=== PATIENT | male | born 1940 | race Caucasian/White ===

== ENCOUNTER 2018-02-05 13:43 | Emergency (ER) | payer OTHER, SELFPAY ==
[2018-02-05 13:54] VITALS: BP 124/100; PULSE 80; RESP 18; TEMP 37; O2SAT 97
--- NOTE | 2018-02-05 14:25 | DI.REPORT_ITS ---
SYMPTOMS/DIAGNOSIS: CUT WITH A SAW, DISTAL 2, 3, 4 DIGITS LEFT HAND: The patient reportedly has a soft tissue injury of the index, middle and ring fingers. There are soft tissue defects noted. There are degenerative changes of the IP joints. A small bony fragment seen adjacent to the DIP joint of the index finger could represent degenerative change vs avulsed bony fragment. No other significant bony abnormality seen.
--- NOTE | 2018-02-05 16:06 | ED.GENADUL_ITS ---
Disposition Clinical Impression: Finger laceration involving tendon, Finger laceration Disposition: HOME Condition: Fair Instructions: Finger Laceration (ED) Additional Instructions: Keep fingers elevated. Tylenol and/or ibuprofen as needed for discomfort. Please keep current dressing on for the next 48 hours. After that time you may change the dressing but please keep this covered with sterile dressing. When she removed the initial bandage, please use the foam and metal splint. He may yogi tape her fingers together. Please monitor for signs of infection including redness, warmth, drainage, fever/chills, increased pain or other new/ worsening symptoms. Please seek care urgently if you develop these. Please take antibiotics as prescribed. Please contact orthopedics Thursday morning to schedule follow-up appointment. Dr. Baker is expecting to see you in the office next week. Prescriptions: Cephalexin [Keflex] 500 mg PO QID #28 cap Referrals: Trenton Baker MD [ [facility] STAFF PHYSICIAN] - Medical Decision Making - Radiology Data Radiology results: report reviewed Imaging reviewed by radiologist. They advised that the soft tissue defects are noted. There are degenerative change of the IP joints. Small bony fragments seen adjacent to the DIP joint of the index finger which could represent degenerative changes versus avulsed bony fragment. No other significant bony abnormality seen. - Medical Decision Making Patient presents today with chief complaint of laceration to the left hand. Part arrival patient was working with a table saw and cut the index, middle and ring finger. Patient has diminished sensation on exam. Patient is unable to flex the DIP joint in all of the affected digits, he has minimal flexion in the ring but otherwise unable to flex the DIP at all. Patient is having severe discomfort. Unknown tetanus status. I have asked nursing staff to help determine tetanus status. Given the depth of 1 feel that imaging is appropriate of possible fracture. Prior to patient undergoing imaging, I feel that digital block is appropriate to help with his severe discomfort. Patient I discussed risk/benefits as well as procedural steps involved in block. He voiced understanding and wished to proceed Last tetanus was completed in 2014. Procedure note: Prior to patient going imaging, a digital block was performed on the second, third and fourth digits. Was performed using standard sterile technique. Prior to anesthetizing the area range of motion sensation was assessed. Please see note above. 2% lidocaine plain was used to anesthetize the digits. 5 cc was used at both the second and fourth digits. 4 cc was used in the base of the third. Patient tolerated procedure well. Imaging was obtained. Radiologist voiced concern for possible fracture to the index finger. Normal, he also advised that this may be also arthritic changes and not an acute fracture. Procedure note: Using standard sterile technique, the wounds are copiously irrigated. I initiated my care with the index finger. On each finger, a tourniquet was used to be able to visualize the wounds. No foreign body or debris was noted any of the wounds. They were all cleansed with sterile saline and chlorhexidine. On examination of the index finger, the flexor tendon of the DIP joint was noted to be completely severed. Attention was then turned to closure. #8 stitches were used to realign multiple jagged flaps. Attention was then turned to the third finger. The flexor tendon of the DIP joints is involved but does not appear to be completely severed. Along the radial side, the tendon remains intact. Appears to be a partial thickness laceration to the tendon. Wound edges were then realigned and #7 simple interrupted sutures were placed. This digit does appear to be lacking some tissue, I feel that some of this may remain on the saw. The fourth digit was evaluated. Flap was able to be realigned. No foreign body or debris was noted. This is into the fatty portion of the digit. No tendon or bony involvement noted. #7 simple interrupted sutures were placed. For all the suturing, 5-0 nylon was used. Consulted with Dr. Baker regarding findings while cleansing the wound and tendon involvement. He advised that there is no acute changes. Advised. We also discussed that the patient does not have sensation distal to the wounds. His request to see the patient in clinic next week. Patient tolerated procedures well. Sterile bulky dressings were placed by nursing staff. Encourage elevation of his hand. He will keep current dressings on for the next 48 hours. After that time, he will remove the dressing and reapply new sterile dressing. A foam and metal splint was discharged with the patient for the index and middle finger. We discussed the signs and symptoms of infection and when to seek care urgently once again. He will contact orthopedics next week to schedule follow-up with Dr. Baker is advised above. We discussed new/worsening symptoms when to seek care urgently once again. All his questions and concerns were addressed and he is in agreement this plan. Is advised he may wash with running water but should not soak or submerge this will increase his risk of infection. History of Present Illness - General Chief complaint: Laceration Stated complaint: FINGERS LACERATION/BENCH SAW Time Seen by Provider: 02/05/18 14:01 Source: patient, family, RN notes reviewed Mode of arrival: ambulatory Limitations: no limitations - History of Present Illness Initial comments: Patient is a right-hand dominant 78-year-old male presenting today with chief complaint of laceration to the left hand. Prior to arrival, the patient was working with a table saw when he accidentally caught his second, third and fourth digits - Related Data Omeprazole 20 mg PO DAILY 09/19/12 Multivitamin [Multivitamins] 1 each PO DAILY 08/17/13 Naproxen Sodium [Aleve] 2 cap PO DAILY 01/31/15 Aspirin 81 mg PO DAILY tab-cap 06/04/16 Cholecalciferol (Vitamin D3) [Vitamin D3] 200 unit PO BID 09/14/17 Cephalexin [Keflex] 500 mg PO QID #28 cap 02/05/18 Allergies Allergy/AdvReac Type Severity Reaction Status Date / Time citric acid Allergy Mild Unverified 02/05/18 14:32 Course Vital Signs - 24 hr 02/05/18 13:54 Temperature 37.0 C Pulse 80 Respiratory 18 Rate Blood Pressure 124/100 Pulse Oximetry 97
[2018-02-05 16:37] VITALS: BP 124/65; PULSE 86; RESP 16; TEMP 37; O2SAT 97
== END 2018-02-05 16:35 | disposition home or self-care (01) ==
PROVIDERS: Emergency Provider Emergency Medicine; PCP Family Medicine
DX: S66.121A Laceration of flexor muscle, fascia and tendon of left index finger at wrist and hand level, initial encounter (principal); S66.123A Laceration of flexor muscle, fascia and tendon of left middle finger at wrist and hand level, initial encounter; S61.215A Laceration without foreign body of left ring finger without damage to nail, initial encounter; W31.2XXA Contact with powered woodworking and forming machines, initial encounter
CPT/HCPCS: 12041; 99284; 73130; 99283

== ENCOUNTER → 2018-02-09 10:19 | Outpatient (CLI) | payer OTHER, SELFPAY | PROVIDERS: PCP Family Medicine; Visit Provider Orthopaedic Surgery | DX: S66.121A Laceration of flexor muscle, fascia and tendon of left index finger at wrist and hand level, initial encounter (principal); S66.123A Laceration of flexor muscle, fascia and tendon of left middle finger at wrist and hand level, initial encounter; S61.215A Laceration without foreign body of left ring finger without damage to nail, initial encounter; W31.2XXA Contact with powered woodworking and forming machines, initial encounter | CPT/HCPCS: 99213 ==

== ENCOUNTER 2018-02-18 03:12 | Outpatient (CLI) | payer OTHER, SELFPAY ==
[2018-02-18 09:47] LABS: ALT 25 U/L (12-78); AST 19 U/L (15-37); Albumin 3.4 g/dL (3.4-5.0); Alkaline Phosphatase 66 U/L (46-116); Anion Gap 6.6 mmol/L (3-11); BUN 18 mg/dL (7-18); Bilirubin, Total 0.9 mg/dL (0.2-1.0); CO2 26.4 mmol/L (21.0-32.0); CREATININE 1.18 mg/dL (0.70-1.30); Calcium 8.7 mg/dL (8.5-10.1); Chloride 105 mmol/L (98-107); Estimated GFR 59.86 (mL/min/1.73m2); Glucose 94 mg/dL (70-100); Potassium 4.6 mmol/L (3.5-5.1); Sodium 138 mmol/L (136-145); Total Protein 7.1 g/dL (6.4-8.2)
== END 2018-02-18 03:32 ==
PROVIDERS: PCP Family Medicine; Visit Provider Family Medicine
DX: E55.9 Vitamin D deficiency, unspecified (principal); K21.9 Gastro-esophageal reflux disease without esophagitis
CPT/HCPCS: 36415; 80053; 82306; 99213

== ENCOUNTER → 2018-03-04 08:43 | Outpatient (BNVA) | payer OTHER, SELFPAY | PROVIDERS: PCP Family Medicine; Referring Provider Family Medicine; Visit Provider Orthopaedic Surgery | DX: S66.121D Laceration of flexor muscle, fascia and tendon of left index finger at wrist and hand level, subsequent encounter (principal); S66.123D Laceration of flexor muscle, fascia and tendon of left middle finger at wrist and hand level, subsequent encounter; S61.215D Laceration without foreign body of left ring finger without damage to nail, subsequent encounter; W31.2XXD Contact with powered woodworking and forming machines, subsequent encounter | CPT/HCPCS: 99212 ==

== ENCOUNTER 2019-02-23 01:17 | Outpatient (CLI) | payer OTHER, SELFPAY ==
[2019-02-23 08:43] LABS: Glucose 117 mg/dL (70-100); Magnesium 1.7 mg/dL (1.8-2.4)
[2019-02-24 05:48] LABS: Vitamin D 25 Total 29.2 ng/ml (30-100)
== END 2019-02-23 01:37 ==
LOC: LOS 01:17 → LBO 07:32
PROVIDERS: PCP Family Medicine; Visit Provider Family Medicine
DX: E55.9 Vitamin D deficiency, unspecified (principal); E83.42 Hypomagnesemia; R73.03 Prediabetes
CPT/HCPCS: 36415; 82306; 82947; 83735

== ENCOUNTER 2020-05-09 01:56 | Outpatient (CLI) | payer OTHER, SELFPAY ==
[2020-05-12 14:55] LABS: Patient Race White; SARS-CoV-2 RNA Undetected (Undetected); SARS-CoV-2 Specimen Source Nasal
== END 2020-05-09 02:16 ==
PROVIDERS: PCP Family Medicine; Visit Provider Family Medicine
DX: Z20.828 Contact with and (suspected) exposure to other viral communicable diseases (principal)
CPT/HCPCS: U0003

== ENCOUNTER 2020-05-21 11:30 | Emergency (ER) | payer OTHER, SELFPAY ==
[2020-05-21 11:40] VITALS: BP 169/79; PULSE 76; RESP 16; TEMP 36.4; O2SAT 95
--- NOTE | 2020-05-21 11:44 | ED.GENADUL_ITS ---
Discharge Plan Disposition Patient Disposition: HOME Condition: Stable Discharge Details Clinical Impression: Lumbar strain Primary Care Provider: Beverly Martinez ED Provider: Jocelyn Villeda Home Meds and New Rx's Prescriptions: New methocarbamol 500 mg tablet 500 mg PO Q6H PRN (Reason: muscle spasm) Qty: 14 RF: 0 oxycodone 5 mg tablet 5 mg PO Q6H PRN (Reason: pain) Qty: 5 RF: 0 Continued cholecalciferol (vitamin D3) [Vitamin D3] 400 unit tablet 2,000 unit PO DAILY RF: 0 sildenafil [Viagra] 50 mg tablet 50 mg PO DAILY PRN (Reason: sexual activity) Qty: 2 RF: 0 multivitamin 1 EACH tablet 1 ea PO DAILY RF: 0 naproxen sodium [Aleve] 220 MG tablet 2 cap PO DAILY RF: 0 omeprazole 20 MG capsule,delayed release(DR/EC) 20 mg PO DAILY RF: 0 Discharge Instructions Instructions: Low Back Strain (ED) Additional Instructions: Alternate ice and heat to the affected area(s) several times daily for 20 minutes at a time. Alternate tylenol and motrin as needed and directed for pain. Take the methocarbamol and oxycodone as needed and directed for pain not relieved with Tylenol or Motrin. You can also use [id number] Lidoderm patches as needed and directed for pain. Follow-up with your primary care doctor in 1 week. Return to the emergency department with any worsening or new concerning symptoms such as leg weakness or numbness, bowel or bladder incontinence or worsening pain. Discharge Data Discharge Date/Time-TO BE ENTERED AT DEPARTURE: 05/21/20 12:27 Discharge Physician: Jocelyn Villeda Medical Decision Making 80-year-old male with a history of GERD, migraine, osteoarthritis presents for left lower back pain that started after feeling a pop when lifting a piece of wood at home 4 days ago. No cauda equina symptoms. No radiation of pain. He appears uncomfortable with antalgic gait. Otherwise he appears nontoxic. His abdomen is soft and nontender. He has left lower lumbar paraspinal tenderness but no midline spinal tenderness. There is no evidence of trauma. No focal deficits. Neurovascular intact. Suspect lumbar muscle strain. History and presentation not consistent with cauda equina syndrome, vertebral fracture, or GI or cause. Patient has no midline spinal tenderness without report or evidence of trauma and without focal deficits, do not see indication for imaging at this time and he is agreeable. Patient drove himself to the ER will hold on medication here. A Lidoderm patch was placed here. Patient was sent home with methocarbamol and oxycodone. Advised to alternate ice and heat, Tylenol and Motrin. Advised to follow up with the primary care doctor for re-evaluation. Usual and customary return precautions given prior to discharge. Medical Records Medical records reviewed: Yes I reviewed the patient's medical records. HPI General Mode of arrival: ambulatory . Date/Time Provider Initiated Documentation: 05/21/20 11:32 . Limitations to Documentation: no limitations . Information obtained by: patient . HPI Narrative: Patient is a 80-year-old male who presents with left lower back pain after lifting a piece of wood at home 4 days ago. Patient states he was working on a wood shed when he bent over wrong and felt an instant stabbing pain in his left lower back. He states the pain is worse with moving and walking and when moving from sitting to standing positions. He has been taking Advil without relief. He denies any radiation of pain into his buttock or leg. He denies fever, nausea, vomiting, abdominal pain, bowel or bladder incontinence, saddle anesthesia, leg weakness or numbness. Patient took Advil prior to arrival. Patient states he drove himself to the ER. Related Data Home Medications Medication Instructions Recorded Confirmed omeprazole 20 mg PO DAILY 09/19/12 05/21/20 multivitamin 1 ea PO DAILY 08/17/13 05/21/20 naproxen sodium [Aleve] 2 cap PO DAILY 01/31/15 05/21/20 cholecalciferol (vitamin D3) 10 2,000 unit PO DAILY tab-cap 02/17/19 05/21/20 mcg (400 unit) tablet sildenafil 50 mg tablet 50 mg PO DAILY PRN #2 tab 04/11/20 05/21/20 methocarbamol 500 mg PO Q6H PRN #14 tab 05/21/20 oxycodone 5 mg PO Q6H PRN #5 tab 05/21/20 Previous Rx's Medication Instructions Recorded sildenafil 50 mg tablet 50 mg PO DAILY PRN #2 tab 04/11/20 methocarbamol 500 mg PO Q6H PRN #14 tab 05/21/20 oxycodone 5 mg PO Q6H PRN #5 tab 05/21/20 Allergies Allergy/AdvReac Type Severity Reaction Status Date / Time citric acid Allergy Mild Verified 05/21/20 11:46 Review of Systems All systems reviewed & are unremarkable except as noted in HPI and below Constitutional Constitutional: Reports as per HPI, Denies chills and Denies fever(s) Eyes Eyes: Denies blurry vision ENT Ears, Nose, Mouth, and Throat: Denies dizziness, Denies sore throat and Denies throat swelling Cardiovascular Cardiovascular: Denies chest pain and Denies dyspnea Respiratory Respiratory: Denies cough and Denies dyspnea Gastrointestinal Gastrointestinal: Denies abdominal pain, Denies diarrhea and Denies vomiting Genitourinary Genitourinary: Denies hematuria and Denies dysuria Musculoskeletal Musculoskeletal: Reports back pain and Denies numbness Integumentary/Breasts Skin/Breast: Denies lesions and Denies rash Neurologic Neurologic: Denies dizziness, Denies localized weakness and Denies numbness Allergic/Immunologic Allergic/Immunologic: Denies throat swelling [facility] Medical History (Updated 05/21/20 @ 12:14 by Jocelyn Villeda DO) GERD (gastroesophageal reflux disease) Hearing loss History of tobacco use Has not smoked for 35 to 40 years. Injury of hand (02/05/18) Migraine aura without headache (08/12/16) Osteoarthritis POLST (Physician Orders for Life-Sustaining Treatment) Surgical History (Updated 04/11/20 @ 09:24 by Myron Mckeon NP) Status post tonsillectomy Tonsillectomy Family History (Updated 04/12/20 @ 18:47 by Sena Brown) Mother , age 70 Chronic obstructive lung disease Cancer Father , age 61 Colon cancer Sister , age 74 Diabetes Essential hypertension Stroke Brother , age 72 Diabetes Lung cancer Maternal Grandfather Essential hypertension Stroke Paternal Grandfather No problems noted. Maternal Grandmother Diabetes Cancer Paternal Grandmother No problems noted. Brother Diabetes Brother No problems noted. Son No problems noted. Son No problems noted. Son No problems noted. Daughter , age 45 Cancer Social History (Updated 04/12/20 @ 18:46 by Sena Brown) Smoking/Tobacco Use Status: Former Tobacco Use Tobacco: How many years used: 30 Smoking risk assessment performed?: Yes Alcohol Intake: former Drug use: Never Caregiver/Support person: No Household members: none Communication Needs: None Pets and animals: No Do you think of yourself as: straight/heterosexual Current gender identity: male What is your relationship status?: How often do you talk on the phone with friends or family?: three or more times per week How often do you attend confucianist or synagogue services?: 4 or more times per year Do you belong to any clubs or organized social groups?: no Panel score (0-1 are the most socially isolated patients): 2 What type of physical activity do you participate in: other Details: work Duration: > 90 minutes/day Frequency: 5-6 times per week Edith/Latter-Day: Scientology Special edith needs: No Seatbelt use: always Drive intox or ride w/intox bull driver: No Do you feel safe in your relationship?: Yes Victim of physical abuse: No Victim of emotional abuse: No Victim of sexual abuse: No Would you like helpful sources: No Exam Const General: cooperative, healthy appearing and no acute distress HENMT Head: normal to inspection Face and sinus: normal facial exam Eyes General: appearance normal, both eyes and all related structures EOM: EOM intact bilaterally Neck Neck: normal visual inspection and No submandibular swelling Lymphatic: no lymphadenopathy noted Chest Chest: normal inspection of the chest and no tenderness Resp Effort & Inspection: normal respiratory effort and able to speak in complete sentences Auscultation: clear to auscultation bilaterally Cardio Rate: regular rate Rhythm: regular rhythm GI Inspection: normal to inspection Palpation: soft, not firm, not rigid and nontender Auscultation: normal bowel sounds Back/Spine/Pelvis Thoracic/Lumbar Spine: paraspinal tenderness (Left lower lumbar), No thoracic spinal tenderness and No lumbar spinal tenderness Pelvis: no pain with anterior-posterior compression, no buttock ecchymosis, no buttock tenderness and no buttock swelling Sacrum: no ecchymosis, no erythema, no swelling and no tenderness Coccyx: no swelling and no tenderness Skin General skin exam: no rashes or lesions noted Neuro General: patient alert, patient awake, patient oriented x3, moves all extremities and no focal motor deficits Cognition: normal cognition Speech: speech normal Gait: antalgic Motor: muscle tone normal throughout and strength 5/5 throughout Sensory Exam: no sensory deficits noted DTR's: Rt Patellar: 1+, Lt Patellar: 1+, Rt Ankle: 1+ and Lt Ankle: 1+ Plantar Reflexes: Equivocal: bilateral (Negative Babinski bilaterally) Extrem General: normal to inspection, full ROM, capillary refill normal, no calf tenderness bilaterally and no edema Other: Bilateral DP/PT pulses intact. Psych Appearance: grossly normal Mental Status: mental status grossly normal Speech and Movement: speech and movement normal Affect: normal affect
[2020-05-21] MEDS: Lidocaine 5% Patch 1 PATCH TP (12:26)
== END 2020-05-21 12:27 | disposition home or self-care (01) ==
LOC: ER 12:22
PROVIDERS: Emergency Provider Physician Assistant; PCP Family Medicine
DX: S39.012A Strain of muscle, fascia and tendon of lower back, initial encounter (principal); X50.0XXA Overexertion from strenuous movement or load, initial encounter
CPT/HCPCS: 99283

== ENCOUNTER 2020-06-20 08:07 | Outpatient (CLI) | payer OTHER, SELFPAY ==
[2020-06-21 14:42] LABS: COVID-19 RT-PCR UVMMC Result Negative (Negative)
== END 2020-06-20 08:27 ==
PROVIDERS: PCP Family Medicine; Visit Provider Family Medicine
DX: Z20.828 Contact with and (suspected) exposure to other viral communicable diseases (principal)
CPT/HCPCS: U0003

== ENCOUNTER 2020-11-02 13:41 | Emergency (ER) | payer OTHER, SELFPAY ==
[2020-11-02 13:45] VITALS: BP 161/74; PULSE 72; RESP 18; TEMP 36.2; O2SAT 96
--- NOTE | 2020-11-02 14:31 | DI.RAD_ITS ---
Exam(s) XR KNEE LT 3V AP,LAT,NANO EXAM: XR KNEE LT 3V AP,LAT,NANO CLINICAL HISTORY: twisting injury TECHNIQUE: COMPARISON: CR RIGHT KNEE 3 VIEWS from 02/28/2013 FINDINGS: Three views were obtained. There does not appear to be a significant knee joint effusion or hemarthr osis. No fracture is seen. IMPRESSION: RADIATION DOSE DELIVERED: Total DLP
--- NOTE | 2020-11-02 14:55 | ED.GENADUL_ITS ---
Discharge Plan Disposition Patient Disposition: HOME Condition: Good Discharge Details Clinical Impression: Left knee pain Primary Care Provider: Beverly Martinez ED Provider: Kayla Jett Home Meds and New Rx's Prescriptions: New diclofenac sodium 3 % gel 1 applic topical BID 60 Days RF: 0 No Action cholecalciferol (vitamin D3) [Vitamin D3] 400 unit tablet 2,000 unit PO DAILY RF: 0 sildenafil [Viagra] 50 mg tablet 50 mg PO DAILY PRN (Reason: sexual activity) Qty: 2 RF: 0 multivitamin 1 EACH tablet 1 ea PO DAILY RF: 0 naproxen sodium [Aleve] 220 MG tablet 2 cap PO DAILY RF: 0 omeprazole 20 MG capsule,delayed release(DR/EC) 20 mg PO DAILY RF: 0 methocarbamol 500 mg tablet 500 mg PO Q6H PRN (Reason: muscle spasm) Qty: 14 RF: 0 oxycodone 5 mg tablet 5 mg PO Q6H PRN (Reason: pain) Qty: 5 RF: 0 Discharge Instructions Instructions: Knee Pain (ED) Additional Instructions: Take Tylenol 650 every 4-6 hours as needed for pain You may apply Voltaren gel topically as prescribed for pain Use your knee brace and walker or cane Please return with redness, fever, worsening pain Follow up with the orthopedist listed below or your primary care physician for outpatient follow-up Referrals: Sergio Herrera MD [ [facility] STAFF PHYSICIAN] - Discharge Data Discharge Date/Time-TO BE ENTERED AT DEPARTURE: 11/02/20 15:00 Medical Decision Making No clinical evidence of DVT clinically, no tenderness or swelling appreciated, tenderness with palpation to lateral left knee, no evidence of septic joint No overlying erythema, has knee brace which she is wearing and ambulatory with antalgic gait Has walker and cane at home and feels comfortable discharge home Orthopedic referral and Voltaren gel supplied X-ray does not show evidence of acute abnormality per my interpretation and r adiology review Differential Diagnosis Differential Diagnosis: Fracture, strain, contusion, abrasion Medical Records Medical records reviewed: Yes I reviewed the patient's medical records. HPI General Mode of arrival: ambulatory . Date/Time Provider Initiated Documentation: 11/02/20 13:56 . Limitations to Documentation: no limitations . Information obtained by: patient . HPI Narrative: This 80-year-old male presents with left knee pain after twisting 3 days ago. Is been taking ibuprofen with mild relief. He feels that he is getting around safely with a crutch. He denies any calf pain or swelling. He denies any strength or sensation change. Pain is exacerbated with blinking. He has been wearing a brace with mild improvement in his symptoms. He denies any fever or chills. Related Data Home Medications Medication Instructions Recorded Confirmed omeprazole 20 mg PO DAILY 09/19/12 05/21/20 multivitamin 1 ea PO DAILY 08/17/13 05/21/20 naproxen sodium [Aleve] 2 cap PO DAILY 01/31/15 05/21/20 cholecalciferol (vitamin D3) 10 2,000 unit PO DAILY tab-cap 02/17/19 05/21/20 mcg (400 unit) tablet sildenafil 50 mg tablet 50 mg PO DAILY PRN #2 tab 04/11/20 05/21/20 methocarbamol 500 mg PO Q6H PRN #14 tab 05/21/20 oxycodone 5 mg PO Q6H PRN #5 tab 05/21/20 diclofenac sodium 1 applic TOPICAL BID 60 Days g 11/02/20 Previous Rx's Medication Instructions Recorded sildenafil 50 mg tablet 50 mg PO DAILY PRN #2 tab 04/11/20 methocarbamol 500 mg PO Q6H PRN #14 tab 05/21/20 oxycodone 5 mg PO Q6H PRN #5 tab 05/21/20 diclofenac sodium 1 applic TOPICAL BID 60 Days g 11/02/20 Allergies Allergy/AdvReac Type Severity Reaction Status Date / Time citric acid Allergy Mild Verified 11/02/20 13:52 General Stated Complaint: Orthopedic ALBINO: 4 Review of Systems Narrative: Review of systems negative x3 aside from where indicated in HPI [facility] Medical History (Updated 11/02/20 @ 14:55 by SCOOTER Zamudio) GERD (gastroesophageal reflux disease) Hearing loss History of tobacco use Has not smoked for 35 to 40 years. Injury of hand (02/05/18) Migraine aura without headache (08/12/16) Osteoarthritis POLST (Physician Orders for Life-Sustaining Treatment) Surgical History (Updated 04/11/20 @ 09:24 by Myron Mckeon NP) Status post tonsillectomy Tonsillectomy Family History (Updated 04/12/20 @ 18:47 by Sena Brown) Mother , age 70 Chronic obstructive lung disease Cancer Father , age 61 Colon cancer Sister , age 74 Diabetes Essential hypertension Stroke Brother , age 72 Diabetes Lung cancer Maternal Grandfather Essential hypertension Stroke Paternal Grandfather No problems noted. Maternal Grandmother Diabetes Cancer Paternal Grandmother No problems noted. Brother Diabetes Brother No problems noted. Son No problems noted. Son No problems noted. Son No problems noted. Daughter , age 45 Cancer Social History (Updated 04/12/20 @ 18:46 by Sena Brown) Smoking/Tobacco Use Status: Former Tobacco Use tobacco type: cigarettes Tobacco: How many years used: 30 Smoking risk assessment performed?: Yes Alcohol Intake: former Drug use: Never Caregiver/Support person: No Household members: none Communication Needs: None Pets and animals: No Do you think of yourself as: straight/heterosexual Current gender identity: male What is your relationship status?: How often do you talk on the phone with friends or family?: three or more times per week How often do you attend mormonism or sabianism services?: 4 or more times per year Do you belong to any clubs or organized social groups?: no Panel score (0-1 are the most socially isolated patients): 2 What type of physical activity do you participate in: other Details: work Duration: > 90 minutes/day Frequency: 5-6 times per week Edith/Jewish: Catholic Special edith needs: No Seatbelt use: always Drive intox or ride w/intox driver/merchandiser: No Do you feel safe in your relationship?: Yes Victim of physical abuse: No Victim of emotional abuse: No Victim of sexual abuse: No Would you like helpful sources: No Exam Const General: cooperative and healthy appearing Resp Effort & Inspection: normal respiratory effort Cardio Rate: regular rate Skin General skin exam: no rashes or lesions noted Neuro General: patient alert and patient oriented x3 Extrem Other: Left knee with tenderness, no laxity, no calf pain, distal pulses intact No erythema or evidence of septic joint Neurovascularly intact, no tenderness to left hip or left ankle Course Vital Signs Vital signs: Vital Signs Temperature 36.2 C L 11/02/20 13:45 Pulse 72 11/02/20 13:45 Respiratory Rate 18 11/02/20 13:45 Blood Pressure 161/74 H 11/02/20 13:45 Pulse Oximetry 96 11/02/20 13:45 Temperature 36.2 C L 11/02/20 13:45 Temperature Source Skin 11/02/20 13:45 Pulse 72 11/02/20 13:45 Respiratory Rate 18 11/02/20 13:45 Respiratory Effort 11/02/20 13:51 Blood Pressure 161/74 H 11/02/20 13:45 Blood Pressure Position Sitting 11/02/20 13:45 Pulse Oximetry 96 11/02/20 13:45 Oxygen Delivery Method Room Air 11/02/20 13:45 Oxygen Flow Rate 0 11/02/20 13:45 Pain Level 2 11/02/20 14:50
== END 2020-11-02 15:00 | disposition home or self-care (01) ==
PROVIDERS: Emergency Provider Physician Assistant; PCP Family Medicine
DX: M25.562 Pain in left knee (principal)
CPT/HCPCS: 73562; 99283

== ENCOUNTER 2021-04-26 03:46 | Outpatient (CLI) | payer MEDICARE, SELFPAY ==
[2021-04-26 10:29] LABS: Calcium 9.1 mg/dL (8.5-10.1)
[2021-04-26 10:30] LABS: ALT 27 U/L (16-63); AST 18 U/L (15-37); Albumin 3.5 g/dL (3.4-5.0); Alkaline Phosphatase 75 U/L (46-116); Anion Gap 6.1 mmol/L (3-11); BUN 18 mg/dL (7-18); Bilirubin, Total 0.6 mg/dL (0.2-1.0); CO2 29.9 mmol/L (21.0-32.0); CREATININE 1.2 mg/dL (0.70-1.30); Chloride 104 mmol/L (98-107); Estimated GFR 58.26 (mL/min/1.73m2); Glucose 149 mg/dL (74-106); Magnesium 1.6 mg/dL (1.8-2.4); Potassium 4.8 mmol/L (3.5-5.1); Sodium 140 mmol/L (136-145); Total Protein 8.1 g/dL (6.4-8.2)
== END 2021-04-26 03:47 | disposition home or self-care (01) ==
LOC: LBO 03:50
PROVIDERS: PCP Family Medicine; Visit Provider Family Medicine
DX: I10 Essential (primary) hypertension (principal); E83.42 Hypomagnesemia
CPT/HCPCS: 36415; 80053; 83735

== ENCOUNTER 2021-07-09 11:32 | Outpatient (CLI) | payer MEDICARE, SELFPAY ==
[2021-07-09 12:01] LABS: HCT 42.2 % (40.0-50.0); HGB 13.8 g/dL (13.5-17.5); MCH 28.9 pg (27.0-33.0); MCHC 32.7 % (32.0-36.0); MCV 88.3 fL (80-95); MPV 9.3 fL (8.0-11.0); Platelet Count 250 10^3/uL (130-400); RBC 4.78 10^6/uL (4.36-5.78); RDW 13.1 % (11.8-14.1); RDW-SD 42.5 fL
[2021-07-09 12:22] LABS: Hemoglobin A1C 8.9 % (<5.7)
[2021-07-09 13:35] LABS: ALT 26 U/L (16-63); AST 20 U/L (15-37); Albumin 3.5 g/dL (3.4-5.0); Alkaline Phosphatase 92 U/L (46-116); Anion Gap 9.3 mmol/L (3-11); BUN 16 mg/dL (7-18); Bilirubin, Total 0.6 mg/dL (0.2-1.0); CO2 24.7 mmol/L (21.0-32.0); CREATININE 1.3 mg/dL (0.70-1.30); Calcium 8.9 mg/dL (8.5-10.1); Chloride 101 mmol/L (98-107); Estimated GFR 53.12 (mL/min/1.73m2); Glucose 263 mg/dL (74-106); Potassium 4.7 mmol/L (3.5-5.1); Sodium 135 mmol/L (136-145); TSH (W/Ref FT4) 1.98 uIU/mL (0.36-3.74)
[2021-07-09 22:06] LABS: Calculated LDL 69 mg/dL (<100); Cholesterol 158 mg/dL (<200); HDL Cholesterol 36 mg/dL (40-60); Triglyceride 266 mg/dL (<150)
== END 2021-07-09 11:33 | disposition home or self-care (01) ==
LOC: LBO 11:34
PROVIDERS: PCP Family Medicine; Visit Provider Family Medicine
DX: I10 Essential (primary) hypertension (principal); R06.02 Shortness of breath; R60.0 Localized edema; E11.65 Type 2 diabetes mellitus with hyperglycemia
CPT/HCPCS: 36415; 80053; 80061; 85027; 83036; 84443

== ENCOUNTER → 2021-07-10 00:50 | Outpatient (CLI) | payer MEDICARE, SELFPAY ==
--- NOTE | 2021-07-10 07:30 | DI.US_ITS ---
Exam(s) US LOWER EXTREMITY VENOUS LT EXAM: US LOWER EXTREMITY VENOUS LT CLINICAL HISTORY: left leg edema /pain, high suspicion DVT, localized edema, R60.0 TECHNIQUE: Grayscale, color, and doppler imaging of the deep venous system of the left lower extremi ty was performed. COMPARISON: No exams were available for comparison FINDINGS: This is a positive study for DVT. There is intraluminal thrombus extending from the proximal left femoral vein down to and below the le julia of the knee, continuous through the popliteal vein and into the posterior tibial vein extending t o almost the level of the ankle. The common femoral vein itself appears patent. There is no evidence of intraluminal thrombus within the ipsilateral greater saphenous vein. IMPRESSION: 1. Extensive DVT in the left lower extremity, as described above. DATA REPOSITORY:
[2021-07-10] MEDS: Omnipaque 350 MG/ML 100 ML BTL IJ (10:09)
--- NOTE | 2021-07-10 10:12 | DI.CT_ITS ---
Exam(s) CT CHEST PE CTA EXAM: CT CHEST PE CTA CLINICAL HISTORY: dvt, SOB, high suspicion of PE I82.409 DVT R06.02 SOB. TECHNIQUE: Imaging Protocol: CT angiography of the chest was performed using pulmonary embolus georgie col. Multi planar reconstructions were performed. CONTRAST MATERIAL: Intravenous: Omnipaque 350 Contrast volume: 100 cc COMPARISON: No exams were available for comparison FINDINGS: CHEST: PULMONARY ARTERIES: This study is positive for pulmonary emboli bilaterally.There intraluminal thromb i the distal aspect of both main pulmonary arteries and extending into the inferior pulmonary arterie s bilaterally. Also involving upper lobe arteries bilaterally. LUNGS: No confluent infiltrates. No pulmonary infarct evident at this time. No pleural effusions.. No pneumothorax. MEDIASTINUM: There is no hilar nor mediastinal adenopathy. Visualized thyroid unremarkable.Prominent hiatal hernia evident. CARDIAC: Heart size is upper normal. There is no pericardial effusion.Caliber of the thoracic aorta is within normal limits. No prominent shift of the interventricular septum. PARTIALLY VISUALIZED UPPERMOST ABDOMEN: No adrenal masses. No splenomegaly. Hiatal hernia noted. H epatic steatosis. OSSEOUS: No significant osseous lesions.. IMPRESSION: 1. This study is positive for extensive bilateral pulmonary emboli, as described above.No obvious pul monary infarct at this time. No pleural effusions. 2. No intrathoracic adenopathy evident. 3. Large hiatal hernia evident. 4. Please note that this patient has extensive DVT in the left lower extremity, as seen on ultrasoun d examination performed today. Please see that separate report. RADIATION DOSE DELIVERED: 467.01mGy.cm Total DLP DATA REPOSITORY: All CT scans at this facility are submitted to the National Radiology Data Registry (NRDR) Dose Index Registry (DIR) with the [employer] (A[employer]). RADIATION OPTIMIZATION: All CT scans at this facility use at least one of these dose optimization te chniques: automated exposure control; mA and/or kV adjustment per patient size (includes targeted exa ms where dose is matched to clinical indication); or iterative reconstruction.
== END ==
PROVIDERS: PCP Family Medicine; Visit Provider Family Medicine
DX: R06.02 Shortness of breath (principal); I26.99 Other pulmonary embolism without acute cor pulmonale; R60.0 Localized edema; M79.605 Pain in left leg; I82.412 Acute embolism and thrombosis of left femoral vein; I82.432 Acute embolism and thrombosis of left popliteal vein
CPT/HCPCS: 71275; 93971; J3490

== ENCOUNTER 2021-07-10 10:55 | Emergency (ER) | payer MEDICARE, SELFPAY ==
[2021-07-10 11:03] VITALS: BP 149/75; PULSE 74; RESP 13; TEMP 37.3; O2SAT 96
--- NOTE | 2021-07-10 11:09 | W.ED.GENAD ---
Discharge Plan Disposition Patient Disposition: HOME Condition: Stable Discharge Details Clinical Impression: DVT (deep venous thrombosis), Pulmonary embolus Primary Care Provider: Sanit Escalante ED Provider: Maico Vaz Home Meds and New Rx's Prescriptions: New Eliquis DVT-PE Treat 30D Start 5 mg (74 tabs) tablets,dose pack 5 mg PO ONCE Qty: 74 RF: 0 Continued omeprazole 20 mg capsule,delayed release(DR/EC) 40 mg PO DAILY Qty: 60 RF: 2 cholecalciferol (vitamin D3) [Vitamin D3] 400 unit tablet 2,000 unit PO DAILY RF: 0 multivitamin 1 EACH tablet 1 ea PO DAILY RF: 0 naproxen sodium [Aleve] 220 MG tablet 2 cap PO DAILY RF: 0 No Action Eliquis DVT-PE Treat 30D Start 5 mg (74 tabs) tablets,dose pack See Rx Instructions PO PER PKG DIR Qty: 74 RF: 0 Discharge Instructions Instructions: Pulmonary Embolism (ED), Deep Vein Thrombosis (ED) Additional Instructions: you have a blood clot in your left leg and part of the clot has moved to the lungs follow up with your primary care provider within 1 week if you feel more ill, have worsening shortness of breath or chest pain return to the emergency department Medical Decision Making 81 yo male with hx of htn, gerd, who comes in from radiology after having positive dvt study in his left leg and PE on cta. He states for 3 or more weeks has had swelling and discomfort in the left leg and also has noticed some shortness of breath when he exerts himself. He denies chest pain, fevers, cough, hemoptysis. He saw his pcp this week and had a u/s and CTA done today showing the dvt in the left leg and bilateral PEs. He was sent here for an evaluation from radiology. He arrives in no distress speaking in full sentences. He denies any shortness of breath currently and again says he has no chest pain. His left leg is swollen and has tenderness in the calf, no deficits in sensation and no changes in skin cology to suggest phlegmasia cerulea dolens or alba dolens. HE has clear lung souns, no murmurs and no jvd. On bedside u/s he has normall appearing EF and normal appearing size of his rv. Discussed radiology results with pt and recommended at least doing blood work and possible admission for observation given his age. He has capacity to make his own decisions and declines to have either done because he had labs done yesterday. Given his hemodynamic stability and reassuring bedside u/s feel this is reasonable and will start him on eliquis. He will f/u with his pcp and return precautions given Differential Diagnosis Differential Diagnosis: dvt, pe Medical Records Medical records reviewed: Yes I reviewed the patient's medical records. HPI General Mode of arrival: wheelchair. Date/Time Provider Initiated Documentation: 07/10/21 10:56. Limitations to Documentation: no limitations. Information obtained by: patient. History of Present Illness 81 year old M presents to the emergency department with the chief complaint of leg swelling, described as moderate, Patient started experiencing this month(s) (2) and it has been constant. No relieving factors improve symptom(s), No exacerbating factors reported . Patient notes shortness of breath. Patient did receive the following treatments prior to arrival, none Related Data Home Medications Medication Instructions Recorded Confirmed multivitamin 1 ea PO DAILY 08/17/13 07/10/21 naproxen sodium [Aleve] 2 cap PO DAILY 01/31/15 07/10/21 cholecalciferol (vitamin D3) 10 2,000 unit PO DAILY tab-cap 02/17/19 07/10/21 mcg (400 unit) tablet omeprazole 20 mg capsule,delayed 40 mg PO DAILY #60 cap 04/17/21 07/10/21 release apixaban 5 mg (74 tabs) tablets in See Rx Instructions PO PER PKG DIR 07/10/21 07/10/21 a dose pack #74 dose pk apixaban [Eliquis DVT-PE Treat 30D 5 mg PO ONCE #74 dose pk 07/10/21 Start] Previous Rx's Medication Instructions Recorded omeprazole 20 mg capsule,delayed 40 mg PO DAILY #60 cap 04/17/21 release apixaban 5 mg (74 tabs) tablets in See Rx Instructions PO PER PKG DIR 07/10/21 a dose pack #74 dose pk apixaban [Eliquis DVT-PE Treat 30D 5 mg PO ONCE #74 dose pk 07/10/21 Start] Allergies Allergy/AdvReac Type Severity Reaction Status Date / Time citric acid Allergy Mild Verified 07/10/21 11:06 General Stated Complaint: SOB ALBINO: 2 Review of Systems All systems reviewed & are unremarkable except as noted in HPI and below Constitutional Constitutional: Denies chills, Denies fever(s) and Denies weakness Cardiovascular Cardiovascular: Denies chest pain Gastrointestinal Gastrointestinal: Denies abdominal pain, Denies nausea and Denies vomiting Neurologic Neurologic: Denies weakness Psychiatric Psychiatric: Denies depression PFSH All Active Problems (Updated 07/10/21 @ 11:23 by Maico Vaz MD) Pulmonary embolus (Chronic) DVT (deep venous thrombosis) (Chronic) Diabetes mellitus (Chronic) 06/2021, hgb a1c-8.9% Essential hypertension (Acute) Erectile disorder, acquired, generalized, moderate (Acute) POLST (Physician Orders for Life-Sustaining Treatment) (Acute) Osteoarthritis (Acute) Migraine aura without headache (Acute 08/12/16) Hearing loss (Acute) GERD (gastroesophageal reflux disease) (Chronic) Gastroesophageal reflux disease (Acute) Medical History (Updated 07/10/21 @ 11:23 by Maico Vaz MD) History of tobacco use Has not smoked for 35 to 40 years. Injury of hand (02/05/18) Surgical History (Updated 04/11/20 @ 09:24 by Myron Mckeon NP) Status post tonsillectomy Tonsillectomy Family History (Updated 04/12/20 @ 18:47 by Sena Brown) Mother , age 70 Chronic obstructive lung disease Cancer Father , age 61 Colon cancer Sister , age 74 Diabetes Essential hypertension Stroke Brother , age 72 Diabetes Lung cancer Maternal Grandfather Essential hypertension Stroke Paternal Grandfather No problems noted. Maternal Grandmother Diabetes Cancer Paternal Grandmother No problems noted. Brother Diabetes Brother No problems noted. Son No problems noted. Son No problems noted. Son No problems noted. Daughter , age 45 Cancer Social History (Updated 04/23/21 @ 11:29 by Doug Muller) Smoking/Tobacco Use Status: Former Tobacco Use tobacco type: cigarettes and smokeless tobacco Quit Date: 06/15/80 Tobacco: How many years used: 30 Second Hand Exposure: Yes Smoking risk assessment performed?: Yes Alcohol Intake: current Alcohol Intake frequency: a few times a month Alcohol type: hard liquor Drug use: Never Caregiver/Support person: No Household members: none Communication Needs: None Do you need help understanding health information?: Rarely Pets and animals: No Sexually active: Yes Do you think of yourself as: straight/heterosexual Current gender identity: male What is your relationship status?: How often do you talk on the phone with friends or family?: three or more times per week How often do you get together with friends or relatives?: three or more times per week How often do you attend taoist or congregational services?: 4 or more times per year Do you belong to any clubs or organized social groups?: no Panel score (0-1 are the most socially isolated patients): 2 What type of physical activity do you participate in: walking Duration: 30-45 minutes/day Frequency: 3-4 times per week Edith/Spiritism: Restoration Special edith needs: No Seatbelt use: always Helmet use: Yes Helmet use: sometimes Drive intox or ride w/intox truss driver helper: No Do you feel safe in your relationship?: Yes Victim of physical abuse: No Victim of emotional abuse: No Victim of sexual abuse: No Would you like helpful sources: No Exam Const General: no acute distress Orientation: alert HENMT Head: normal to inspection Ears: external ears normal General nose exam: external nose normal Mouth: moist mucous membranes Eyes General: appearance normal, both eyes and all related structures Neck Neck: normal visual inspection Resp Effort & Inspection: normal respiratory effort and able to speak in complete sentences Cardio Rate: regular rate Skin General skin exam: no rashes or lesions noted Neuro General: patient alert and patient oriented x3 Extrem General: full ROM and capillary refill normal Psych Mental Status: mental status grossly normal Course Vital Signs Vital signs: Respiratory Effort 07/10/21 11:03 Pain Level 8 07/10/21 11:03
[2021-07-10 11:13] VITALS: BP 149/75; PULSE 75; RESP 16; O2SAT 94
[2021-07-10 11:14] VITALS: PULSE 73; RESP 16
[2021-07-10 11:16] VITALS: BP 140/65; PULSE 70; PULSE 76; RESP 19; O2SAT 94
[2021-07-10 11:17] VITALS: PULSE 69; RESP 15
[2021-07-10 11:20] VITALS: PULSE 71; RESP 18
== END 2021-07-10 11:31 | disposition home or self-care (01) ==
PROVIDERS: Emergency Provider Emergency Medicine; PCP Family Medicine
DX: I82.492 Acute embolism and thrombosis of other specified deep vein of left lower extremity (principal); I26.99 Other pulmonary embolism without acute cor pulmonale
CPT/HCPCS: 99283

== ENCOUNTER → 2021-07-25 02:05 | Outpatient (CLI) | payer MEDICARE, SELFPAY ==
--- NOTE | 2021-07-25 15:03 | DI.US_ITS ---
APPROVED REPORT EXAM: Comprehensive 2D, Doppler, and color-flow Echocardiogram Patient Location: Out-Patient [facility] Helper: Nevaeh Olivo RDCS (AE) Indications: Recent multiple PE, Evaluate cardiac function Conclusion Normal left ventricular wall thickness and chamber size. Estimated ejection fraction is 50 to 55%. There are no segmental wall motion abnormalities Normal right ventricular size and systolic function Both atria are normal in size Sclerotic trileaflet aortic valve without stenosis or regurgitation Ventricular systolic pressure could not be estimated Wall motion Left Ventricle The left ventricle is normal size. Left ventricular systolic function is borderline. There is normal left ventricular wall thickness. No segmental wall motion abnormalities There is no ventricular septa l defect visualized. LVEF is 50-55%. Right Ventricle The right ventricle is normal size. The right ventricular systolic function is normal. Atria The left atrium size is normal. The right atrium size is normal. The interatrial septum is intact wit h no evidence for an atrial septal defect. Aortic Valve The Aortic valve is sclerotic. Aortic valve is trileaflet. There is no aortic valvular stenosis. No a ortic regurgitation is present. Mitral Valve The mitral valve is normal in structure. No evidence of mitral valve stenosis. Trace mitral regurgita tion. Tricuspid Valve The tricuspid valve is normal in structure. There is no tricuspid valve stenosis. Trace tricuspid reg urgitation. Pulmonic Valve The pulmonary valve is normal in structure. There is no pulmonic valvular stenosis. Trace pulmonic re gurgitation. Great Vessels The aortic root is normal in size. The ascending aorta is normal in size. Aortic arch is normal in ca liber. IVC is normal in size and collapses >50% with inspiration. Pericardium There is no pericardial effusion. 2D Dimensions IVSD d PLAX 1.00 cm M: 0.6-1.2 LV Vol A2C d MOD 70.7 mL LVPW d PLAX 1.00 cm M: 0.6 - 1.2 LV Vol A4C d MOD 93.0 mL LVID d PLAX 4.64 cm M: 4.2 - 5.8 LA vol/ BSA A2C s A-L 16.8 mL/m2 LVDs 3.40 cm M: 2.5 - 4.0 LA vol/ BSA A4C s A-L 18.3 mL/m2 Ao Root d 3.06 cm M: 3.1 - 3.7 LA Vol/ BSA Biplane s A-L 17.8 mL/m2 RA Area A4C 11.55 cm2 LA Area A4C s MOD 14.48 cm2 RA Vol/ BSA A4C s A-L 12.2 mL/m2 LA Area A2C s MOD 13.62 cm2 Ao Asc Diam d 3.19 cm M: 2.6 - 3.4 LV EF A4C MOD 50.9 % LV EF Teichholz 51.0 % LV EF A2C MOD 50.5 % LVEF (Gill's) 52.24 % M: 52 - 72 LV EF Biplane MOD 52.2 % LV Volume 62.82 mL M: 62 - 150 SV 43.81 mL LV Volume Index 31.25 mL/m2 M: 34 - 74 SV Index 21.81 mL/m2 LV Vol Biplane MOD 83.9 mL FS 25.95 % M-Mode TAPSE 2.10 cm (M/F) >1.7 LV Diastology MV E' medial 0.064 (>0.07 m/s) E/A Ratio 0.8 LV E/e MED 11.20 (<14) MV E Vmax 0.71 (0.4-1.3 m/s) MV E' lateral 0.078 (>0.1 m/s) MV A Vmax 0.85 (0.4-1.3 m/s) LV E/e LAT 9.10 (<14) MV E/A Ratio 0.83 MV E/E' medial 11.22 MV E/E' lateral 9.11 Aortic Valve LVOT Area 3.78 cm2 AoV Area Vmax 2.52 cm2 LVOT Vmax 0.86 m/s AoV Area/ BSA (Vmax) 1.26 cm2/m2 LVOT Mean Antonio. 0.53 m/s RODRÍGUEZ Mean Antonio. 2.32 cm2 LVOT Peak Grad 2.9 mmHg RODRÍGUEZ Mean Antonio. Index 1.15 cm2/m2 LVOT Mean Grad 1.3 mmHg LVOT VTI 0.139 m LVOT Diam s 2.15 cm AoV Vmax 1.28 m/s Velocity Ratio 0.67 AoV Mean Antonio. 0.86 m/s AoV Peak Grad 6.6 mmHg LVOT SV 52.66 mL AoV Mean Grad 3.3 mmHg AoV VTI 0.218 m AoV Area VTI 2.42 cm2 AoV Area/ BSA (VTI) 1.20 cm/m2 Mitral Valve MV DT 294 (160-240 msec) MV PHT 85 msec MV Area PHT 2.58 cm2 MV VTI 0.224 m MV Area VTI 2.35 (4.0-6.0 cm2) Pulmonary Valve PV Vmax 1.30 (0.5-1.5 m/s) RVOT Peak Gr. 1.25 mmHg PV Peak Grad 6.8 mmHg RVOT Mean Gr. 0.65 mmHg PV Mean Grad 3.1 mmHg RVOT VTI 0.108 m PV VTI 0.172 m RVOT Vmax 0.56 m/s
== END ==
PROVIDERS: PCP Family Medicine; Visit Provider Family Medicine
DX: Z86.711 Personal history of pulmonary embolism (principal)
CPT/HCPCS: 93306

== ENCOUNTER 2022-04-25 01:59 | Outpatient (CLI) | payer MEDICARE, SELFPAY ==
[2022-04-25 16:45] LABS: Hemoglobin A1C 7.6 % (<5.7)
[2022-04-25 17:05] LABS: CREATININE 1.6 mg/dL (0.70-1.30); Estimated GFR 43.02 (mL/min/1.73m2); Potassium 4.5 mmol/L (3.5-5.1)
== END 2022-04-25 02:00 | disposition home or self-care (01) ==
LOC: LBO 01:59
PROVIDERS: PCP Nurse Practitioner Family; Visit Provider Nurse Practitioner Family
DX: I10 Essential (primary) hypertension (principal); E11.9 Type 2 diabetes mellitus without complications
CPT/HCPCS: 36415; 82565; 83036; 84132

== ENCOUNTER 2024-07-12 03:18 | Outpatient (CLI) | payer MEDICARE, SELFPAY ==
[2024-07-12 12:38] LABS: Anion Gap 9.2 mmol/L (3-11); BUN 21 mg/dL (7-18); CO2 26.8 mmol/L (21.0-32.0); CREATININE 1.4 mg/dL (0.70-1.30); Calcium 9.3 mg/dL (8.5-10.1); Calculated LDL 55 mg/dL (<100); Chloride 105 mmol/L (98-107); Cholesterol 111 mg/dL (<200); Estimated GFR 49.87 (mL/min/1.73m2); Glucose 126 mg/dL (74-106); HDL Cholesterol 30 mg/dL (40-60); Potassium 4.6 mmol/L (3.5-5.1); Sodium 141 mmol/L (136-145); Triglyceride 131 mg/dL (<150)
== END 2024-07-12 03:19 | disposition home or self-care (01) ==
LOC: LOS 03:18
PROVIDERS: PCP Nurse Practitioner Family; Visit Provider Nurse Practitioner Family
DX: Z13.6 Encounter for screening for cardiovascular disorders (principal); Z13.1 Encounter for screening for diabetes mellitus
CPT/HCPCS: 36415; 80048; 80061

== ENCOUNTER 2024-07-25 13:20 | Emergency (ER) | payer MEDICARE, SELFPAY ==
[2024-07-25 13:26] VITALS: BP 133/68; PULSE 85; RESP 16; TEMP 36.4
--- NOTE | 2024-07-25 14:52 | ED.GENADUL_ITS ---
Discharge Plan Disposition Patient Disposition: Home Condition: Good Discharge Details Clinical Impression: Groin strain Primary Care Provider: Myron Mckeon ED Provider: Lidia Samuel Home Meds and New Rx's Prescriptions: Continued omeprazole 20 mg capsule,delayed release(DR/EC) 40 mg PO DAILY Qty: 60 2RF Rx Instructions: OTC (DME) lancets [Accu-Chek Softclix Lancets] Misc See Rx Instructions .Route Qty: 100 3RF Rx Instructions: Twice daily (DME) blood-glucose meter [Accu-Chek Pamela Plus Meter] Misc See Rx Instructions .Route Qty: 1 1RF Rx Instructions: Twice daily fluticasone propion-salmeterol [Advair HFA] 115-21 mcg/actuation HFA aerosol inhaler 2 puff inhalation BID Qty: 12 3RF cholecalciferol (vitamin D3) [Vitamin D3] 400 unit tablet 2,000 unit PO DAILY (DME) Accu-Chek Pamela Plus test strp Strip See Rx Instructions .Route Qty: 100 3RF Rx Instructions: Twice daily amlodipine 5 mg tablet 5 mg PO DAILY Qty: 90 3RF Eliquis 5 mg tablet 5 mg PO BID Qty: 180 3RF Discontinued triamcinolone acetonide 0.1 % ointment 1 applic topical BID Qty: 80 1RF Discharge Instructions Instructions: Groin Strain ED Additional Instructions: Take tylenol for pain; follow the directions on the bottle. Do not take ibuprofen. Rest your leg as much as possible. You can use a heat pack on the area. Call your primary care doctor to schedule an appointment to followup on your visit here. Mention that you had a small amount of blood in urine at that visit. Return to the emergency department for new or worsening symptoms including severe pain, inability to walk, or if you have any other concerns. Referrals: Myron Mckeon MANAGER SALT [Primary Care Provider] - [facility] General Mode of arrival: ambulatory . Date/Time Provider Initiated Documentation: 07/25/24 14:05 . Limitations to Documentation: no limitations . Information obtained by: patient . HPI Narrative: 84yo M with hx HTN, prediabetes, DVT/PE on anticoagulation, presenting with left groin pain. Symptoms first started 4 days ago. The day they started he was lifting water jugs and his left foot slipped forward on the ice a bit; thinks he may have pulled a muscle. Has been trying tylenol at home (last yesterday evening) with some improvement in symptoms. Pain is constant but worse with moving, particularly with getting up from sitting. Pain is sharp, mild at baseline and moderate to severe with motion. No dysuria or hematuria. No testicular pain. Otherwise in his usual state of health with no fevers, chills, nausea, vomiting, or other concerns. Related Data Home Medications ?Medication ?Instructions ?Recorded ?Confirmed cholecalciferol (vitamin D3) 10 2,000 unit PO DAILY 02/17/19 07/25/24 mcg (400 unit) tablet (Vitamin D3) omeprazole 20 mg capsule,delayed 40 mg (2 x 20 mg) PO DAILY #60 caps 04/17/21 07/25/24 release blood-glucose meter (Accu-Chek #1 ea 12/27/21 07/25/24 Pamela Plus Meter) lancets (Accu-Chek Softclix #100 ea 12/27/21 07/25/24 Lancets) blood sugar diagnostic (Accu-Chek #100 ea 08/27/23 07/25/24 Pamela Plus test strips) amlodipine 5 mg tablet 5 mg PO DAILY #90 tabs 11/18/23 07/25/24 apixaban 5 mg tablet (Eliquis) 5 mg PO BID #180 tabs 04/27/24 07/25/24 fluticasone propionate 115 2 puff inhalation BID #12 grams 04/27/24 07/25/24 mcg-salmeterol 21 mcg/actuation HFA inhaler (Advair HFA) Previous Rx's ?Medication ?Instructions ?Recorded omeprazole 20 mg capsule,delayed 40 mg (2 x 20 mg) PO DAILY #60 caps 04/17/21 release blood-glucose meter (Accu-Chek #1 ea 12/27/21 Pamela Plus Meter) lancets (Accu-Chek Softclix #100 ea 12/27/21 Lancets) blood sugar diagnostic (Accu-Chek #100 ea 08/27/23 Pamela Plus test strips) amlodipine 5 mg tablet 5 mg PO DAILY #90 tabs 11/18/23 apixaban 5 mg tablet (Eliquis) 5 mg PO BID #180 tabs 04/27/24 fluticasone propionate 115 2 puff inhalation BID #12 grams 04/27/24 mcg-salmeterol 21 mcg/actuation HFA inhaler (Advair HFA) Allergies Allergy/AdvReac Type Severity Reaction Status Date / Time citric acid Allergy Mild Hives Verified 07/25/24 13:31 General Stated Complaint: Abd Prob ALBINO: 3 Review of Systems Narrative: see HPI Exam Narrative Exam Narrative: General: Alert, well appearing, well nourished, in no acute distress. Head: Normocephalic, atraumatic Neck: Trachea midline, ?Neck supple. Cardiac: ?No cyanosis. Resp: No respiratory distress. Speaking in full sentences. Abd: ?Soft, non-distended, nontender : ?No suprapubic tenderness. Testicles non-tender with normal lie, no scrotal skin changes. No inguinal hernia. MSK: Tendon TTP in left groin Extremities: ?No deformities.? No peripheral edema. Neurologic: GCS 15. ? Moves all extremities freely against gravity Course Vital Signs Vital signs: Vital Signs Temperature 36.4 C L 07/25/24 13:26 Pulse 85 07/25/24 13:26 Respiratory Rate 16 07/25/24 13:26 Blood Pressure 133/68 07/25/24 13:26 Temperature 36.4 C L 07/25/24 13:26 Temperature Source Axillary 07/25/24 13:26 Pulse 85 07/25/24 13:26 Respiratory Rate 16 07/25/24 13:26 Blood Pressure 133/68 07/25/24 13:26 Blood Pressure Position Sitting 07/25/24 13:26 Pain Level 7 07/25/24 13:26 Medical Decision Making 84yo M with hx HTN, prediabetes, DVT/PE on anticoagulation, presenting with left groin pain. Symptoms first started 4 days ago while lifting water jugs with left leg slipping on ice. Vital signs reassuring on arrival. Normal testicular exam, no inguinal hernia; does have tendonous tenderness to palpation in left groin. Not suggestive of testicular torsion, orchitis, epidimytis; would not get US. Suspect strain. Given tyelnol for pain. Patient is on AC for hx DVT/PE and should avoid regular NSAID use; discussed risks/benefits and will give single half-dose toradol here to help with pain control. UA not infected, does have minimal microscopic hematuria not particularly suggestive of kidney stone. Patient reports distant history of kidney stone decades ago and that this does not feel at all similar. Given his clear tenderness to palpation MSK etiology far more likely- would not get CT imaging at this time. Instructed to followup wt PCP for microscopic hematuria. Advised [id number] tylenol at home, heat packs, and PCP followup. Discharged home; discharge instructions and return precautions were reviewed with patient who verbalized understanding. All questions were answered and he is in full agreement with the plan. Lab Data Lab results reviewed: Yes I reviewed the patient's lab results. Labs: Laboratory Tests Range/Units 07/25/24 15:08 Urine Color (Yellow) Yellow Urine Clarity (Clear) Clear Urine pH (5-8) 5.5 Ur Specific Leland (1.005-1.025) 1.025 Urine Protein (Neg-Trace) mg/dL 30 H Urine Ketones (Negative) mg/dL Negative Urine Blood (Negative) Moderate H Urine Nitrite (Negative) Negative Urine Bilirubin (Negative) Negative Urine Urobilinogen (Up to 0.2) mg/dL 0.2 Ur Leukocyte Esterase (Negative) Trace H Urine RBC (0-2) HPF 3-5 H Urine WBC (0-5) HPF 3-5 Ur Epithelial Cells (Negative) HPF Rare Urine Crystals (Negative) HPF Negative Urine Bacteria (Negative) HPF Rare Urine Casts (Negative) LPF Negative Urine Mucus (Negative) Trace Ur Culture Indicated? No Urine Glucose (Negative) mg/dL Negative Quality:SDOH Health Related Social Needs: No Data to Display PFSH All Active Problems (Updated 07/25/24 @ 15:11 by Lidia Samuel MD) Groin strain (Acute) Short of breath on exertion (Acute) Lipoma (Acute) Right shoulder pain (Acute) Obesity (BMI 30-39.9) (Acute) Anticoagulant long-term use (Acute) DVT (deep venous thrombosis) (Chronic) 06/2021, extensive, involving left leg, associated with multiple PE's Also persistent modest post DVT edema left [id number] x6 months Diabetes mellitus (Chronic) 06/2021, hgb a1c-8.9%. He insists diet control. Not really working, but he will not consider medications. Essential hypertension (Acute) Erectile disorder, acquired, generalized, moderate (Acute) POLST (Physician Orders for Life-Sustaining Treatment) (Acute) Osteoarthritis (Acute) Hearing loss (Acute) GERD (gastroesophageal reflux disease) (Chronic) Medical History History of tobacco use Has not smoked for 35 to 40 years. Migraine aura without headache (08/12/16) Does not get them any more. (he says 22 years) Injury of hand (02/05/18) Surgical History Status post tonsillectomy Tonsillectomy Family History Mother , age 70 Chronic obstructive lung disease Cancer Father , age 61 Colon cancer Sister , age 74 Diabetes Essential hypertension Stroke Brother , age 72 Diabetes Lung cancer Maternal Grandfather Essential hypertension Stroke Paternal Grandfather No problems noted. Maternal Grandmother Diabetes Cancer Paternal Grandmother No problems noted. Brother Diabetes Brother No problems noted. Son No problems noted. Son No problems noted. Son No problems noted. Daughter , age 45 Cancer Social History (Updated 04/28/24 @ 10:02 by Jeannine Gross) Smoking/Tobacco Use Status: Former Tobacco Use tobacco type: cigarettes and smokeless tobacco Quit Date: 06/15/80 Tobacco: How many years used: 35 Quit status: quit date established Second Hand Exposure: Yes Smoking risk assessment performed?: Yes Alcohol Intake: current Alcohol Intake frequency: holidays/special occasions only Alcohol type: hard liquor Drug use: Never Substance use type: does not use Counseling given: No Adopted: No Caregiver/Support person: No Household members: none Housing: house Number of Children: 3 number of grandchildren: 2 Communication Needs: None Education Level: high school Do you need help understanding health information?: Rarely current occupation: Retired Pets and animals: No Sexually active: Yes Do you think of yourself as: straight/heterosexual Current gender identity: male What is your relationship status?: How often do you talk on the phone with friends or family?: three or more times per week How often do you get together with friends or relatives?: three or more times per week How often do you attend episcopalian or episcopalian services?: 4 or more times per year Do you belong to any clubs or organized social groups?: no Panel score (0-1 are the most socially isolated patients): 2 What type of physical activity do you participate in: walking Duration: 30-45 minutes/day Frequency: 3-4 times per week Edith/Protestant: Rastafari Special edith needs: No Seatbelt use: always Helmet use: Yes Helmet use: sometimes Drive intox or ride w/intox semi truck driver: No Firearms in home: No Do you feel safe in your relationship?: Yes Victim of physical abuse: No Victim of emotional abuse: No Victim of sexual abuse: No Would you like helpful sources: No
[2024-07-25] MEDS: Ketorolac 15 MG/ML VIAL IM (14:59)
[2024-07-25] MEDS: Acetaminophen 500 MG TAB 1000 MG PO (14:59)
[2024-07-25 15:17] LABS: Bilirubin Negative (Negative); Blood Moderate (Negative); Clarity Clear (Clear); Glucose Negative (Negative); Ketones Negative (Negative); Leukocyte Esterase Trace (Negative); Nitrite Negative (Negative); Specific Gravity 1.025 (1.005-1.025); Urobilinogen 0.2 mg/dL (Up to 0.2); pH 5.5 (5-8)
[2024-07-25 15:33] LABS: Bacteria Rare HPF (Negative); C & S Indicated? No; Casts Negative LPF (Negative); Crystals Negative HPF (Negative); Epithelial Cells Rare HPF (Negative); Mucus Trace (Negative)
[2024-07-25 15:50] VITALS: BP 129/70; PULSE 77; RESP 16; O2SAT 98
== END 2024-07-25 15:56 | disposition home or self-care (01) ==
PROVIDERS: Emergency Provider Student in an Organized Health Care Education/Training Program; PCP Nurse Practitioner Family
DX: S39.011A Strain of muscle, fascia and tendon of abdomen, initial encounter (principal); X50.0XXA Overexertion from strenuous movement or load, initial encounter
CPT/HCPCS: 96372; 99284; 81003; 81015; 99283; J1885

== ENCOUNTER 2024-08-11 02:57 | Outpatient (CLI) | payer MEDICARE, SELFPAY ==
[2024-08-11 12:36] LABS: Bilirubin Negative (Negative); Blood Moderate (Negative); Clarity Clear (Clear); Glucose Negative (Negative); Ketones Negative (Negative); Leukocyte Esterase Small (Negative); Nitrite Negative (Negative); Specific Gravity 1.015 (1.005-1.025); Urobilinogen 0.2 mg/dL (Up to 0.2)
[2024-08-11 12:46] LABS: Bacteria Rare HPF (Negative); C & S Indicated? Yes; Casts Negative LPF (Negative); Crystals Negative HPF (Negative); Epithelial Cells Rare HPF (Negative); Mucus Trace (Negative); RBC >50 HPF (0-2); WBC 20-50 HPF (0-5)
== END 2024-08-11 02:58 | disposition home or self-care (01) ==
LOC: LOS 02:58
PROVIDERS: PCP Nurse Practitioner Family; Visit Provider Nurse Practitioner Family
DX: Z12.5 Encounter for screening for malignant neoplasm of prostate (principal); R31.29 Other microscopic hematuria
CPT/HCPCS: 36415; 84153; 81003; 81015; 87086

== ENCOUNTER 2024-08-27 09:52 | Outpatient (CLI) | payer MEDICARE, SELFPAY ==
--- NOTE | 2024-08-27 13:15 | DI.RAD_ITS ---
Exam(s) XR CHEST 2V PA LATERAL EXAM: XR CHEST 2V PA LATERAL CLINICAL HISTORY: cough, SOB on exertion TECHNIQUE: 2D digital imaging was performed of the chest. Two images were obtained. PA and lateral views were obtained. COMPARISON: CR LEFT RIBS TO INCLUDE CXR from 01/28/[address] CHEST PE CTA from 07/10/2021 FINDINGS: MEDIASTINUM: Normal. HEART: Normal. PULMONARY VASCULATURE: Normal. LUNGS: There are small opacity seen in the lung bases bilaterally, right greater than left. PLEURAL SPACE: No pleural effusion or pneumothorax. BONE:Within normal limits for the patient's age. OTHER FINDINGS:Normal. IMPRESSION: No basilar infiltrates, right greater than left. This may represent atelectasis or pneumonia. Pleas e correlate clinically. DATA REPOSITORY: RADIATION DOSE DELIVERED:
--- NOTE | 2024-08-27 13:33 | DI.VRAD_ITS ---
PROCEDURE INFORMATION: Exam: XR Chest Exam date and time: 08/27/2024 1:14 PM Age: 84 years old Clinical indication: Cough and shortness of breath TECHNIQUE: Imaging protocol: Radiologic exam of the chest. Views: 2 views. COMPARISON: CT CHEST PE CTA 07/10/2021 10:07 AM FINDINGS: Lungs: Mild atelectasis or infiltrate suspected in the right lower lung. Pleural spaces: No pleural effusion. No pneumothorax. Heart/Mediastinum: Unremarkable. No cardiomegaly. Bones/joints: Unremarkable. IMPRESSION: Mild atelectasis or infiltrate suspected in the right lower lung. Dictated and Authenticated by: David Pryor MD. Orderin Demetrio Brock MD
== END 2024-08-27 10:12 ==
LOC: DI 02-09 09:52
PROVIDERS: PCP Nurse Practitioner Family; Visit Provider Nurse Practitioner Family
DX: R06.02 Shortness of breath (principal); R91.8 Other nonspecific abnormal finding of lung field
CPT/HCPCS: 71046

== ENCOUNTER 2024-08-27 13:07 | Outpatient (REF) | payer MEDICARE, SELFPAY ==
[2024-08-27 16:33] LABS: Abs Immature Grans 0.26 10^3/uL (0.0-0.06); HCT 27.6 % (40.0-50.0); HGB 8.2 g/dL (13.5-17.5); MCH 24.8 pg (27.0-33.0); MCHC 29.7 % (32.0-36.0); MCV 84 fL (80-95); MPV 9.7 fL (8.0-11.0); Platelet Count 113 10^3/uL (130-400); RDW 24.5 % (11.8-14.1); RDW-SD 73.3 fL
[2024-08-27 16:40] LABS: Bilirubin Negative (Negative); Blood Moderate (Negative); Clarity Clear (Clear); Glucose Negative (Negative); Ketones Negative (Negative); Leukocyte Esterase Trace (Negative); Nitrite Negative (Negative); Specific Gravity 1.025 (1.005-1.025); Urobilinogen 0.2 mg/dL (Up to 0.2); pH 5.5 (5-8)
[2024-08-27 17:32] LABS: Bacteria Negative HPF (Negative); C & S Indicated? No; Crystals Mod Calcium Oxalate HPF (Negative); Epithelial Cells Negative HPF (Negative); Mucus Negative (Negative); WBC 0-2 HPF (0-5)
[2024-08-27 17:55] LABS: ALT 19 U/L (16-63); AST 17 U/L (15-37); Albumin 3.1 g/dL (3.4-5.0); Alkaline Phosphatase 87 U/L (46-116); Anion Gap 9.1 mmol/L (3-11); BUN 24 mg/dL (7-18); Bilirubin, Total 0.6 mg/dL (0.2-1.0); CO2 27.9 mmol/L (21.0-32.0); CREATININE 1.5 mg/dL (0.70-1.30); Calcium 8.7 mg/dL (8.5-10.1); Chloride 102 mmol/L (98-107); Estimated GFR 45.91 (mL/min/1.73m2); Glucose 206 mg/dL (74-106); Potassium 4.6 mmol/L (3.5-5.1); Sodium 139 mmol/L (136-145); TSH (W/Ref FT4) 2.13 uIU/mL (0.36-3.74); Total Protein 7.7 g/dL (6.4-8.2)
[2024-08-27 18:33] LABS: Hemoglobin A1C 7.4 % (<5.7)
[2024-08-27 18:39] LABS: Absolute Eosinophil Count 0.77 10^3/uL (0.0-0.7); Absolute Lymphocyte Count 9.29 10^3/uL (1.2-3.4); Absolute Monocyte Count 5.68 10^3/uL (0.1-0.8)
[2024-08-27 18:40] LABS: Metamyelocytes % 1; Other Cells % 13
[2024-08-27 18:41] LABS: Absolute Neutrophil Count 6.45 10^3/uL (1.2-6.7); Anisocytosis 2+; Bands % 1 %; Diff Comment Manual Differential
== END 2024-08-27 13:08 | disposition home or self-care (01) ==
LOC: LBN 13:07
PROVIDERS: PCP Nurse Practitioner Family; Visit Provider Nurse Practitioner Family
DX: R31.29 Other microscopic hematuria (principal); R06.00 Dyspnea, unspecified; R06.02 Shortness of breath; E11.9 Type 2 diabetes mellitus without complications; N39.0 Urinary tract infection, site not specified
CPT/HCPCS: 80053; 81003; 81015; 83036; 84443; 85025

== ENCOUNTER 2024-09-06 21:53 | Outpatient (REF) | payer MEDICARE, SELFPAY ==
[2024-09-06 22:15] LABS: HCT 28.3 % (40.0-50.0); HGB 8.4 g/dL (13.5-17.5); MCH 24.6 pg (27.0-33.0); MCHC 29.7 % (32.0-36.0); MCV 83 fL (80-95); MPV 10.2 fL (8.0-11.0); RBC 3.41 10^6/uL (4.36-5.78); RDW 24.8 % (11.8-14.1); RDW-SD 73.7 fL
[2024-09-06 22:26] LABS: Iron 45 ug/dL (65-175); Total Iron Binding Capacity 367 ug/dL (250-450)
[2024-09-06 22:34] LABS: Ferritin 22 ng/mL (26-388)
[2024-09-06 22:43] LABS: Absolute Basophil Count 0.64 10^3/uL (0.0-0.2); Absolute Lymphocyte Count 14.47 10^3/uL (1.2-3.4); Absolute Neutrophil Count 7.72 10^3/uL (1.2-6.7); Platelet Count 99 10^3/uL (130-400)
[2024-09-06 22:44] LABS: Anisocytosis 2+; Diff Comment Manual Differential; Hypochromasia 1+; Other Cells % 12; Polychromasia Present
[2024-09-06 22:45] LABS: Poikilocytes 1+
[2024-09-06 22:53] LABS: Absolute Monocyte Count 5.47 10^3/uL (0.1-0.8); WBC 32.15 10^3/uL (4.4-10.8)
[2024-09-08 11:28] LABS: Transferrin 301 mg/dL (201-352)
== END 2024-09-06 21:54 | disposition home or self-care (01) ==
LOC: NCHCN 21:53
PROVIDERS: PCP Nurse Practitioner Family; Visit Provider Nurse Practitioner Family
DX: R06.02 Shortness of breath (principal)
CPT/HCPCS: 82728; 83540; 83550; 84466; 85025

== ENCOUNTER 2024-09-08 01:44 | Outpatient (CLI) | payer MEDICARE, SELFPAY ==
[2024-09-08] MEDS: Normal Saline - Diluent 50 ML VIAL IJ ×2 (08:33→08:34)
[2024-09-08] MEDS: Omnipaque 350 MG/ML 100 ML BTL IJ (08:35)
--- NOTE | 2024-09-08 08:49 | DI.CT_ITS ---
Exam(s) CT ABDOMEN PELVIS WO/W EXAM: CT ABDOMEN PELVIS WO/W CLINICAL HISTORY: persistent hematuria,r31.9. TECHNIQUE: Imaging Protocol: Axial computed tomography images with coronal and sagittal reformatted images were created and reviewed Performed with CT urogram technique CONTRAST MATERIAL: Intravenous: Omnipaque-350 100cc Oral: None COMPARISON: CT CT CHEST PE CTA from 07/10/2021 FINDINGS: VISUALIZED LUNG BASES: Chronic changes. Hiatal hernia moderate size. There is fluid in the esophagu s above this level.. ABDOMEN: There is an anterior abdominal wall midline umbilical hernia which contains part of a small bowel loo p. However, there is no evidence of bowel obstruction there is no ascites. However, there is extensive retroperitoneal and para-aortic lymphadenopathy and this extensive lympha denopathy is also seen in the pelvis along the iliac chains. There is also now impressive splenomega ly (21.5 cm craniocaudal measurement) which was not evident on a chest CT scan June 2021 (which re vealed extensive bilateral pulmonary emboli at that time). There is also para esophageal lymphadenop athy seen on the uppermost images. Also abnormal enlarged lymph node in the right cardiophrenic angl e. There also enlarged lymph nodes in the mesentery. All these findings are consistent with probabl e lymphoma. LIVER: There are no focal hepatic lesions evident. No dilated intrahepatic ducts. GALLBLADDER/BILIARY: No obvious gallbladder pathology. CBD is not dilated. PANCREAS: The pancreas is displaced anteriorly by the large amount of retroperitoneal adenopathy, how ever, there is no evidence of pancreatic mass nor dilatation of the pancreatic duct. SPLEEN: Grossly enlarged as described above with CC measurement of 21.5 cm. Splenic and portal veins are patent. ADRENALS: There are no significant adrenal masses. KIDNEYS:Bilateral nephrolithiasis. There are few small calculi in both kidneys. Largest calculus in the right kidney measures 3 mm. There is a solitary punctate 1-2 mm calculus in left kidney. No hy dronephrosis. No hydroureter. There is a cyst in the inferior pole of the right kidney which measur es 1.3 x 1.2 cm. Does not require further imaging workup. Tiny 4 millimeters cysts are noted in the left kidney. There are no solid renal masses evident there are no significant filling defects in th e renal pelves and infundibulum I. there is a small Hutch diverticulum on the right side of the urina ry bladder measuring approximately 11 x 10 mm.. ABDOMINAL AORTA: Calcified but not enlarged. LYMPH NODES:As described above, there is gross retroperitoneal and para-aortic adenopathy as well as extensive intrapelvic adenopathy. ABDOMINAL WALL: No evidence of significant anterior abdominal wall nor inguinal hernia. GI: There is no evidence of bowel obstruction, free air, nor abscess. PELVIS: GI: No evidence of appendicitis.There is extensive sigmoid diverticulosis but no obvious acute divert iculitis. LYMPH NODES: Extensive intrapelvic adenopathy noted. These extend along the iliac chains slightly en larged bilateral inguinal lymph nodes are noted which appear shoddy and may not exhibit the same path ology as the extensive other adenopathy described. REPRODUCTIVE: Moderately enlarged prostate gland which indents the urinary bladder. Seminal vesicles appear unremarkable. URINARY BLADDER: Bladder indented by enlarged prostate gland. There is uniform thickening of the uri nary bladder wall. There is a small Hutch diverticulum on the right side of the bladder adjacent to the right ureterovesical junction. This diverticulum measures approximately 11 x 10 mm. OSSEOUS: No fractures and no significant osseous lesions. IMPRESSION: 1. 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 2. There are small calculi in both kidneys which are probably the cause of the hematuria. There are no solid renal masses. No hydronephrosis. 3. There is uniform thickening of the urinary bladder wall which is probably related to the enlarged prostate gland. There is also a small Hutch diverticulum on the right side of the urinary bladder ad jacent to the right UVJ. This Hutch diverticulum measures approximately 11 x 10 mm 4. There is an anterior abdominal wall midline umbilical hernia which contains part of a small-bowel loop. However, there is no bowel obstruction. RADIATION DOSE DELIVERED: 1,669.86mGy.cm Total DLP DATA REPOSITORY: All CT scans at this facility are submitted to the National Radiology Data Registry (NRDR) Dose Index Registry (DIR) with the [employer] (ACR). RADIATION OPTIMIZATION: All CT scans at this facility use at least one of these dose optimization te chniques: automated exposure control; mA and/or kV adjustment per patient size (includes targeted exa ms where dose is matched to clinical indication); or iterative reconstruction.
== END 2024-09-08 02:04 ==
PROVIDERS: PCP Nurse Practitioner Family; Visit Provider Nurse Practitioner Family
DX: N20.0 Calculus of kidney (principal); R16.1 Splenomegaly, not elsewhere classified
CPT/HCPCS: 74178; J3490

== ENCOUNTER 2024-09-09 15:22 | Outpatient (REF) | payer MEDICARE, SELFPAY ==
[2024-09-09 16:51] LABS: Abs Immature Grans 0.29 10^3/uL (0.0-0.06); HCT 28.6 % (40.0-50.0); HGB 8.4 g/dL (13.5-17.5); MCH 24.6 pg (27.0-33.0); MCHC 29.4 % (32.0-36.0); MCV 84 fL (80-95); MPV 9.8 fL (8.0-11.0); RBC 3.41 10^6/uL (4.36-5.78); RDW 25.1 % (11.8-14.1); RDW-SD 75.2 fL
[2024-09-09 17:03] LABS: ALT 12 U/L (16-63); AST 22 U/L (15-37); Albumin 3.1 g/dL (3.4-5.0); Alkaline Phosphatase 87 U/L (46-116); Anion Gap 10.1 mmol/L (3-11); BUN 19 mg/dL (7-18); Bilirubin, Total 0.6 mg/dL (0.2-1.0); CO2 26.9 mmol/L (21.0-32.0); CREATININE 1.4 mg/dL (0.70-1.30); Calcium 8.6 mg/dL (8.5-10.1); Chloride 104 mmol/L (98-107); Estimated GFR 49.87 (mL/min/1.73m2); Glucose 133 mg/dL (74-106); Potassium 4.6 mmol/L (3.5-5.1); Sodium 141 mmol/L (136-145); Total Protein 7.6 g/dL (6.4-8.2)
[2024-09-09 17:41] LABS: Platelet Count 96 10^3/uL (130-400)
[2024-09-09 17:42] LABS: Absolute Lymphocyte Count 18.89 10^3/uL (1.2-3.4); Absolute Monocyte Count 0.37 10^3/uL (0.1-0.8); Absolute Neutrophil Count 8.15 10^3/uL (1.2-6.7); Atypical Lymphocytes % 20 %
[2024-09-09 17:44] LABS: Anisocytosis 2+; Diff Comment Manual Differential; Hypochromasia 1+; Other Cells % 26
[2024-09-09 17:45] LABS: Poikilocytes 1+
[2024-09-09 17:51] LABS: WBC 37.03 10^3/uL (4.4-10.8)
== END 2024-09-09 15:23 | disposition home or self-care (01) ==
LOC: LBN 15:22
PROVIDERS: PCP Nurse Practitioner Family; Visit Provider Nurse Practitioner Family
DX: R59.1 Generalized enlarged lymph nodes (principal)
CPT/HCPCS: 80053; 85025

== ENCOUNTER → 2024-09-13 11:26 | Outpatient (BNVA) | payer MEDICARE, SELFPAY | PROVIDERS: PCP Nurse Practitioner Family; Referring Provider Nurse Practitioner Family; Visit Provider Student in an Organized Health Care Education/Training Program | DX: R59.1 Generalized enlarged lymph nodes (principal) | CPT/HCPCS: 99204 ==

== ENCOUNTER 2024-09-15 06:58 | Day surgery (SDC) | payer MEDICARE, SELFPAY ==
--- NOTE | 2024-09-15 06:19 | ANES.PREOP_ITS ---
General Info Date of Service Date Performed: 09/15/24 Height: 5 ft 6 in Weight: 89.584 kg Body Mass Index (BMI): 31.8 Surgical Procedure: Operation Date: 09/15/24 07:40 Proposed Procedure Side Surgeon p Axillary Node Biopsy, LT possible RT Left Enzo Butt MD s Possible Inguinal Lymph Node Biopsy Enzo Butt MD Meds Allergies and Home Medications Allergies Allergy/AdvReac Type Severity Reaction Status Date / Time citric acid Allergy Mild Hives Verified 09/15/24 07:31 Home Medication ?Medication ?Instructions ?Recorded cholecalciferol (vitamin D3) 10 2,000 unit PO DAILY 02/17/19 mcg (400 unit) tablet (Vitamin D3) omeprazole 20 mg capsule,delayed 40 mg (2 x 20 mg) PO DAILY #60 caps 04/17/21 release blood-glucose meter (Accu-Chek #1 ea 12/27/21 Pamela Plus Meter) lancets (Accu-Chek Softclix #100 ea 12/27/21 Lancets) blood sugar diagnostic (Accu-Chek #100 ea 08/27/23 Pamela Plus test strips) amlodipine 5 mg tablet 5 mg PO DAILY #90 tabs 11/18/23 apixaban 5 mg tablet (Eliquis) 5 mg PO BID #180 tabs 04/27/24 fluticasone propionate 115 2 puff inhalation BID #12 grams 04/27/24 mcg-salmeterol 21 mcg/actuation HFA inhaler (Advair HFA) magnesium 200 mg tablet 200 mg PO DAILY 07/29/24 potassium 99 mg tablet 99 mg PO DAILY 07/29/24 Current Visit Medications: Current Medications Generic Name Dose Route Start Last Admin Trade Name Freq PRN Reason Stop Dose Admin Ringer's Solution 1,000 mls @ 80 mls/hr 09/15/24 06:00 IV 10/15/24 05:59 INFUSION LILLY IV Miscellaneous Supplies 1 each 09/15/24 06:00 Iv Access IV 09/15/24 23:59 DIRECTED LILLY Sodium Chloride 0 ml 09/15/24 06:00 Normal Saline Flush 10 Ml Syr IV 09/15/24 23:59 PRN PRN Sodium Chloride 0 ml 09/15/24 06:00 Normal Saline 10 Ml Vial IJ 09/15/24 23:59 DIRECTED PRN Sterile Water 0 ml 09/15/24 06:00 Water,Injection,Sterile 10 Ml Vial IJ 09/15/24 23:59 DIRECTED PRN PFSH Active Problems Active Problems: Problem Status Onset Code Lymphadenopathy Acute R59.1 Hematuria Acute R31.9 Short of breath on exertion Acute R06.02 Lipoma Acute D17.9 Right shoulder pain Acute M25.511 Obesity (BMI 30-39.9) Acute E66.9 Anticoagulant long-term use Acute Z79.01 DVT (deep venous thrombosis) Chronic I82.409 Diabetes mellitus Chronic E11.9 Essential hypertension Acute I10 Erectile disorder, acquired, generalized, moderate Acute F52.21 POLST (Physician Orders for Life-Sustaining Treatment) Acute Z78.9 Osteoarthritis Acute M19.90 Hearing loss Acute H91.90 GERD (gastroesophageal reflux disease) Chronic K21.9 Medical History Medical History Microscopic hematuria History of tobacco use Has not smoked for 35 to 40 years. Migraine aura without headache (08/12/16) Does not get them any more. (he says 22 years) Injury of hand (02/05/18) Surgical History Surgical History Status post tonsillectomy Tonsillectomy Tobacco Smoking/Tobacco Use Status: Former Tobacco Use Passive smoking exposure: Yes Second hand exposure: Yes Alcohol Alcohol Intake: current Alcohol intake frequency: holidays/special occasions only Alcohol type: hard liquor Substance Use Substance use: Never Substance use type: does not use Vital Signs and Lab Results Vital Signs Most Recent Vital Signs in EMR: Temp Pulse Resp BP Pulse Ox 36.5 C 81 16 133/62 96 09/15/24 07:09 09/15/24 07:09 09/15/24 07:09 09/15/24 07:09 09/15/24 07:09 Lab Results Blood Type / Crossmatch: No Data to Display Complete Blood Count: White Blood Count 37.03 10^3/uL (4.4-10.8) H* 09/09/24 10:15 Red Blood Count 3.41 10^6/uL (4.36-5.78) L 09/09/24 10:15 Hemoglobin 8.4 g/dL (13.5-17.5) L 09/09/24 10:15 Hematocrit 28.6 % (40.0-50.0) L 09/09/24 10:15 Platelet Count 96 10^3/uL (130-400) L 09/09/24 10:15 Complete Metabolic Panel: 2 Sodium 141 mmol/L (136-145) 09/09/24 10:15 Potassium 4.6 mmol/L (3.5-5.1) 09/09/24 10:15 Chloride 104 mmol/L (98-107) 09/09/24 10:15 Carbon Dioxide 26.9 mmol/L (21.0-32.0) 09/09/24 10:15 BUN 19 mg/dL (7-18) H 09/09/24 10:15 Creatinine 1.4 mg/dL (0.70-1.30) H 09/09/24 10:15 Est GFR (CKD-EPI 2020) 49.87 (mL/min/1.73m2) 09/09/24 10:15 Calcium 8.6 mg/dL (8.5-10.1) 09/09/24 10:15 Albumin 3.1 g/dL (3.4-5.0) L 09/09/24 10:15 Glucose 133 mg/dL (74-106) H 09/09/24 10:15 Hemoglobin A1c 7.4 % (<5.7) H 08/27/24 12:45 Liver Function Panel: Alanine Aminotransferase (ALT/SGPT) 12 U/L (16-63) L 09/09/24 1 0:15 Aspartate Amino Transf (AST/SGOT) 22 U/L (15-37) 09/09/24 10:15 Coagulation Panel: No Data to Display Cardiac Panel: No Data to Display Arterial Blood Gas: No Data to Display Venous Blood Gas: No Data to Display Pancreas Panel: No Data to Display Thyroid Panel: Thyroid Stimulating Hormone (TSH) 2.13 uIU/mL (0.36-3.74) 08/27 12:45 Infectious Disease: No Data to Display Blood Cultures: No Data to Display Toxicology Panel: No Data to Display Anesthesia Assessment and Plan Anesthesia History Personal History: No History of Anesthesia Complications Family History: No Family History of Anesthesia Complications Exercise Tolerance Exercise Tolerance: Metabolic Equivalents>4 Cardiac & Pulmonary Exam Cardiac Exam: Normal S1/S2 Heart Sounds Pulmonary Exam: Clear Bilateral Breath Sounds Implantable Cardiac Device Does patient have a Pacemaker or an ICD?: No Airway Exam Known Difficult Airway: No Mallampati Class: 4 Mouth Opening: Narrow (< 3cm) Thyromental Distance: Greater than 3 cm Neck Range of Motion: Full ROM Neck Circumference: Normal Teeth Condition: Removable Dentures/Plates Upper and Removable Dentures/Plates Lower ASA Classification ASA Score: ASA 3 Emergency Case?: No NPO Status NPO Status: NPO Clears >2 hours, Solids >8 hours Anesthesia Plan Resuscitation Status: Full Code Anesthesia Technique: General Anesthesia Airway Planned: Natural Airway Monitors Used: Standard Monitors Preoperative Comments:: 84 yo male for node biopsy. Has generalized lymphadenopathy t/o body. recent ? 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 Breathing feels decent today, does have persistent PND which causes him to cough. Sig PMHx: HTN, SOB, GERD, DM2 (A1c 7.4), DVT (Eliquis - not held), former smoker (1980), occ EtOH. ECHO: LVEF 50-55%. trace MR/TR/TN.
[2024-09-15 07:09] VITALS: BP 133/62; PULSE 81; RESP 16; TEMP 36.5; O2SAT 96
[2024-09-15] MEDS: Lactated Ringers 1,000 ML 80 ML IV (07:32)
[2024-09-15 07:41] VITALS: BMI 31.8
--- NOTE | 2024-09-15 08:46 | LYM_PTH ---
PATIENT: Kayode Cervantes LOC: [facility] U#:[id number] AGE/SX: 84/M ROOM: RE09/15/[address]: Enzo Butt : 1940 BED: DIS: 09/15/2024 SPEC #: [id number] RECD: 09/15/24 12:20 STATUS: DARIAN REQ #: [id number] ISAK: 09/15/24 08:[address]: Enzo Butt DEPT: Surgical Specimen RECD BY: Kayla Mancia ENTERED: 09/15/24 12:21 SP TYPE: LYM OTHR DR: Vinod Renee DNP Tissues: 1 - FLOW CYTOMETRY NODE/TISSUE Procedures: GROSS AND MICRO LEVEL 4 IMMUNOPEROXIDASE STAIN FISH DNA Probe In Situ Hybridization FLOW CYTOMETRY LYMPHOMA PNL Comments: [id number] (FLOW: [id number] ~ CYTOGENETICS: [id number])
[2024-09-15] MEDS: Bupivacaine 0.25% Pres-Free 30 ML VIAL (08:51)
[2024-09-15 09:05] VITALS: BP 126/53; PULSE 71; RESP 16; TEMP 36.3; O2SAT 97
--- NOTE | 2024-09-15 09:15 | W.PM.OP ---
Operative Note Operative Note Refer to Anesthesia Record Procedure Description: Procedures: 1. Left axillary lymph node excision Preoperative diagnosis: Lymphoma Postoperative diagnosis: Same Surgeon: Abelino Butt Assist: None Anesthesia: MAC Anesthesiologist: Isaak Indication: 84 yo man with diffuse lymphadenopathy. Full node needed for diagnosis. Findings: Large lymph node excised and sent fresh to the lab in RPMI solution. Complications: None Estimated Blood Loss: Minimal Grafts or implants: No Specimens: Left axillary lymph node Procedure in detail: Written consent was obtained from the patient who was in agreement the risks the benefits and indications for the procedure. The patient was taken to the operating suite and given anesthesia and the site was prepped and draped in sterile fashion. A timeout was performed. Abx were NOT indicated. We confirmed laterality. When we were all in agreement we began the procedure. Local anesthetic was injected. At the inferior aspect of the axillary hair, I made a curvilinear incision sharply. A combination of blunt and sharp dissection was performed to just underneath the pectoralis minor muscle insertion where a large, palpable lymph node is. Using the sterile ultrasound probe, I verified that the node was very large. Using Ligasure, I circumferentially excised the node and cored it out intact. It was placed in RPMI solution and sent directly and promptly to the lab. Hemostasis in the cavity was excellent. The patient is fully anticoagulated so I waited 3 or 4 minutes and checked again. No blood was pooling. The sponge was white after re-packing the cavity. I was happy with the hemostasis and closed the skin with Monocryl and Dermabond on top. The sponge, instrument and sharps count was correct x3 at the end of the procedure. The patient tolerated the procedure well and was taken to the PACU in hemodynamically stable condition. Date of Procedure: 09/15/24
--- NOTE | 2024-09-15 09:15 | W.PM.DSUDISC ---
Date of service: 09/15/24 Discharge Plan Disposition Patient Disposition: Home Condition: Good Discharge Details Attending Provider: Enzo Butt Primary Care Provider: Vinod Morales Home Meds and New Rx's Prescriptions: No Action omeprazole 20 mg capsule,delayed release(DR/EC) 40 mg PO DAILY Qty: 60 2RF Rx Instructions: OTC (DME) lancets [Accu-Chek Softclix Lancets] Misc See Rx Instructions .Route Qty: 100 3RF Rx Instructions: Twice daily (DME) blood-glucose meter [Accu-Chek Pamela Plus Meter] Misc See Rx Instructions .Route Qty: 1 1RF Rx Instructions: Twice daily fluticasone propion-salmeterol [Advair HFA] 115-21 mcg/actuation HFA aerosol inhaler 2 puff inhalation BID Qty: 12 3RF magnesium 200 mg tablet 200 mg PO DAILY potassium 99 mg tablet 99 mg PO DAILY cholecalciferol (vitamin D3) [Vitamin D3] 400 unit tablet 2,000 unit PO DAILY (DME) Accu-Chek Pamela Plus test strp Strip See Rx Instructions .Route Qty: 100 3RF Rx Instructions: Twice daily amlodipine 5 mg tablet 5 mg PO DAILY Qty: 90 3RF Eliquis 5 mg tablet 5 mg PO BID Qty: 180 3RF Discharge Instructions Additional Instructions: INSTRUCTIONS: Incision: Does not need to be covered. It is okay to shower but no tub bathing for 1 week. You can peel the glue off after 1 week. Armpit: The incision and armpit will swell up a little bit for a month or so. It is high-risk for getting an infection, so if it is getting worse or red, call us to have it looked at. Activity: As tolerated. Avoid any strenuous heavy lifting/pulling or pushing with that arm for a couple of weeks. You can use it, just be careful. Diet: Regular diet as tolerated. Medications: Resume all of your usual/regular home medications. Keep taking your blood thinners. Follow-up: If you are having any issues or concerns call the surgery office immediately. Otherwise followup in 3 or 4 weeks. Pain control: Take Tylenol, 1000 mg, every 6 hours on a schedule for the next 3 days. Ice works well too. Overall: Symptoms should not be worsening. If you have any difficulty breathing or you have return of symptoms of brought you to the hospital or your pain is otherwise worsening each day and you should call the doctor's office or come into the hospital to be checked out. Stand Alone Forms: Anesthesia Discharge InstCatarina Ann (DSAdria) Activity:: Activity as Tolerated Diet:: As Tolerated
--- NOTE | 2024-09-15 09:17 | W.ANESPOSTOP ---
Postoperative Evaluation Date, Time and Location Date Performed: 09/15/24 Time Performed: 09:17 Patient Location: Day Surgery Unit Vital Signs Most Recent Imported Vital Signs: Most Recent Vital Signs Temp Pulse Resp BP Pulse Ox 36.3 C L 71 16 126/53 L 97 09/15/24 09:05 09/15/24 09:05 09/15/24 09:05 09/15/24 09:05 09/15/24 09:05 Pain Score Most Recent Pain Score: Most Recent Pain Score Pain Level 0 09/15/24 09:05 Assessment Mental Status: Awake (Alert & Oriented to Patient Baseline) Airway and Respiratory Function: Patent airway with normal (patient baseline) respiratory exam Cardiovascular Function: Hemodynamically Stable Hydration Status: Adequately Hydrated Nausea & Vomiting: No Nausea or Vomiting Pain: Pain is tolerable per patient Peripheral Nerve Block: Patient did not receive a nerve block
[2024-09-15 09:40] VITALS: BP 144/75; PULSE 70; RESP 17; TEMP 36.4; O2SAT 93
== END 2024-09-15 09:55 | disposition home or self-care (01) ==
PROVIDERS: PCP Nurse Practitioner Family; Visit Provider Student in an Organized Health Care Education/Training Program
PROC: (CPT 19302; principal; 2024-09-15 07:30)
DX: D47.9 Neoplasm of uncertain behavior of lymphoid, hematopoietic and related tissue, unspecified (principal); K21.9 Gastro-esophageal reflux disease without esophagitis; I10 Essential (primary) hypertension; Z79.01 Long term (current) use of anticoagulants; E11.9 Type 2 diabetes mellitus without complications
CPT/HCPCS: 38525; 88271; 88275; 88305; 88184; 88185; 88361; J0665; J2405; J2704; J3010

== ENCOUNTER → 2024-09-23 11:49 | Outpatient (BNVA) | payer MEDICARE, SELFPAY | PROVIDERS: PCP Nurse Practitioner Family; Referring Provider Nurse Practitioner Family; Visit Provider Physical Therapy Assistant | DX: T79.2XXA Traumatic secondary and recurrent hemorrhage and seroma, initial encounter (principal) | CPT/HCPCS: 10060 ==

== ENCOUNTER → 2024-09-30 09:50 | Outpatient (BNVA) | payer MEDICARE, SELFPAY | PROVIDERS: PCP Nurse Practitioner Family; Referring Provider Nurse Practitioner Family; Visit Provider Physical Therapy Assistant | DX: Z48.817 Encounter for surgical aftercare following surgery on the skin and subcutaneous tissue (principal); T79.2XXA Traumatic secondary and recurrent hemorrhage and seroma, initial encounter ==

== ENCOUNTER → 2024-10-14 13:52 | Outpatient (BNVA) | payer MEDICARE, SELFPAY | PROVIDERS: PCP Nurse Practitioner Family; Referring Provider Nurse Practitioner Family; Visit Provider Student in an Organized Health Care Education/Training Program | DX: Z48.817 Encounter for surgical aftercare following surgery on the skin and subcutaneous tissue (principal); R59.1 Generalized enlarged lymph nodes ==

== ENCOUNTER 2024-11-02 07:33 | Outpatient (CLI) | payer MEDICARE, SELFPAY ==
[2024-11-02 08:42] LABS: Abs Immature Grans 0.25 10^3/uL (0.0-0.06); Absolute Eosinophil Count 0.07 10^3/uL (0.0-0.7); Absolute Monocyte Count 7.88 10^3/uL (0.1-0.8); Basophils % 0.4 %; Eosinophils % 0.2 %; HCT 27.2 % (40.0-50.0); HGB 8.1 g/dL (13.5-17.5); Immature Grans % 0.7 %; MCH 24.9 pg (27.0-33.0); MCHC 29.8 % (32.0-36.0); MCV 84 fL (80-95); MPV 8.7 fL (8.0-11.0); Monocytes % 21.9 %; Neutrophils % 10.8 %; Nucleated RBC 1.3 % (0.0-0.3); RBC 3.25 10^6/uL (4.36-5.78); RDW 25.4 % (11.8-14.1); RDW-SD 76.4 fL
[2024-11-02 08:45] LABS: Absolute Basophil Count 0.14 10^3/uL (0.0-0.2); Absolute Lymphocyte Count 23.73 10^3/uL (1.2-3.4); Absolute Neutrophil Count 3.88 10^3/uL (1.2-6.7)
[2024-11-02 08:59] LABS: ALT 11 U/L (16-63); AST 22 U/L (15-37); Albumin 3.1 g/dL (3.4-5.0); Alkaline Phosphatase 92 U/L (46-116); Anion Gap 11.2 mmol/L (3-11); BUN 21 mg/dL (7-18); Bilirubin, Total 0.7 mg/dL (0.2-1.0); CO2 24.8 mmol/L (21.0-32.0); CREATININE 1.6 mg/dL (0.70-1.30); Calcium 9.3 mg/dL (8.5-10.1); Chloride 102 mmol/L (98-107); Estimated GFR 42.49 (mL/min/1.73m2); Glucose 124 mg/dL (74-106); LDH 274 U/L (85-227); Potassium 4.3 mmol/L (3.5-5.1); Sodium 138 mmol/L (136-145); Total Protein 8.4 g/dL (6.4-8.2); Uric Acid 7.7 mg/dL (3.5-7.2)
[2024-11-02 09:01] LABS: Iron 48 ug/dL (65-175); Total Iron Binding Capacity 404 ug/dL (250-450); Transferrin Sat 12 % (20-55)
[2024-11-02 09:07] LABS: Anisocytosis 2+; Diff Comment Agrees w/ Instrument; Platelet Count 85 10^3/uL (130-400)
[2024-11-02 09:10] LABS: WBC 35.96 10^3/uL (4.4-10.8)
[2024-11-02 09:23] LABS: Ferritin 19 ng/mL (26-388)
[2024-11-02 16:22] LABS: Hemoglobin A1C 7.2 % (<5.7)
[2024-11-03 07:47] LABS: IgA 255 mg/dL (85-499); IgG 2052 mg/dL (610-1616); IgM 37 mg/dL (35-242); Kappa Free Light Chain 7.79 mg/dL (0.33-1.94); Lambda Free Light Chain 14.56 mg/dL (0.57-2.63)
[2024-11-03 10:39] LABS: Hepatitis B Surface Ag Negative (Negative)
[2024-11-03 11:09] LABS: Hep B Core Antibody Negative (Negative)
[2024-11-03 11:20] LABS: HIV-1/2 Ag & Ab Screen Negative (Negative)
[2024-11-03 11:36] LABS: Hepatitis C Ab w Rflx HCV PCR Negative (Negative)
[2024-11-03 11:58] LABS: Albumin 43.4 % (55.8-66.1); Albumin g/dL 3.3 g/dL (3.6-5.2); Total Protein 7.6 g/dL (6.3-8.2)
[2024-11-03 12:38] LABS: HBs Antibody, Quant 8.8 mIU/mL (See Note); Hepatitis B Surface Ab Negative (See Note)
== END 2024-11-02 07:34 | disposition home or self-care (01) ==
LOC: LBO 07:34
PROVIDERS: PCP Nurse Practitioner Family; Visit Provider Internal Medicine Hematology & Oncology
DX: Z11.4 Encounter for screening for human immunodeficiency virus [HIV] (principal); Z11.59 Encounter for screening for other viral diseases; C83.18 Mantle cell lymphoma, lymph nodes of multiple sites
CPT/HCPCS: 36415; 80053; 82784; 86704; 86706; 86803; 87340; 87389; 82728; 83036; 83540; 83550; 83615; 83883; 84165; 84550; 85025

== ENCOUNTER → 2024-11-24 14:51 | Outpatient (BNVA) | payer MEDICARE, SELFPAY | PROVIDERS: PCP Nurse Practitioner Family; Visit Provider Nurse Practitioner Gerontology | DX: R31.29 Other microscopic hematuria (principal); N20.0 Calculus of kidney; R39.9 Unspecified symptoms and signs involving the genitourinary system | CPT/HCPCS: 99215; 81003; 51798 ==

== ENCOUNTER 2024-11-24 15:53 | Outpatient (REF) | payer MEDICARE, SELFPAY ==
[2024-11-24 16:42] LABS: Bilirubin Negative (Negative); Blood Moderate (Negative); Clarity Clear (Clear); Glucose >=1000 mg/dL (Negative); Ketones Negative (Negative); Leukocyte Esterase Negative (Negative); Nitrite Negative (Negative); Specific Gravity 1.015 (1.005-1.025); Urobilinogen 0.2 mg/dL (Up to 0.2); pH 5.5 (5-8)
[2024-11-24 17:02] LABS: Bacteria Few HPF (Negative); C & S Indicated? No; Casts Negative LPF (Negative); Crystals Negative HPF (Negative); Epithelial Cells Rare HPF (Negative); Mucus Trace (Negative); RBC 0-2 HPF (0-2)
== END 2024-11-24 15:54 | disposition home or self-care (01) ==
LOC: LBN 15:53
PROVIDERS: PCP Nurse Practitioner Family; Visit Provider Nurse Practitioner Gerontology
DX: R31.29 Other microscopic hematuria (principal)
CPT/HCPCS: 81003; 81015

== ENCOUNTER 2024-12-07 00:40 | Outpatient (RCR) | payer MEDICARE, SELFPAY ==
[2024-11-16 17:04] LABS: HCT 26.4 % (40.0-50.0); HGB 7.8 g/dL (13.5-17.5); MCH 25.4 pg (27.0-33.0); MCHC 29.5 % (32.0-36.0); MCV 86 fL (80-95); MPV 9.4 fL (8.0-11.0); RBC 3.07 10^6/uL (4.36-5.78); RDW-SD 81.5 fL
[2024-11-16 17:29] LABS: Absolute Monocyte Count 1.17 10^3/uL (0.1-0.8); Absolute Neutrophil Count 3.81 10^3/uL (1.2-6.7); Atypical Lymphocytes % 1 %
[2024-11-16 17:32] LABS: Absolute Lymphocyte Count 19.62 10^3/uL (1.2-3.4); Nucleated RBC 1.9 % (0.0-0.3)
[2024-11-16 17:33] LABS: Myelocytes % 4; Promyelocytes % 1
[2024-11-16 17:34] LABS: Other Cells % 11
[2024-11-16 17:35] LABS: Anisocytosis 1+; Diff Comment Manual Differential; Microcytosis 1+
[2024-11-16 17:50] LABS: Hypochromasia 1+
[2024-11-16 17:51] LABS: Platelet Count 72 10^3/uL (130-400); Poikilocytes 1+
[2024-11-16 18:06] LABS: WBC 29.29 10^3/uL (4.4-10.8)
[2024-11-18] MEDS: Normal Saline Flush 10 ML SYR IVP (10:28)
[2024-11-18 11:29] VITALS: BP 113/63; PULSE 82; RESP 20; TEMP 36.7; O2SAT 97
[2024-11-18 11:44] VITALS: BP 132/66; PULSE 84; RESP 20; TEMP 36.6; O2SAT 97
[2024-11-18 12:00] VITALS: BP 132/66; PULSE 82; RESP 20; TEMP 36.5; O2SAT 97
[2024-11-18 12:36] VITALS: BP 129/64; PULSE 75; RESP 20; TEMP 36.6; O2SAT 95
[2024-11-18 13:20] VITALS: BP 129/66; PULSE 75; RESP 20; TEMP 36.5; O2SAT 98
[2024-11-23] MEDS: Normal Saline Flush 10 ML SYR IVP (07:05)
[2024-11-23 07:38] LABS: HCT 29.2 % (40.0-50.0); HGB 8.6 g/dL (13.5-17.5); MCHC 29.5 % (32.0-36.0); MCV 88 fL (80-95); MPV 9.2 fL (8.0-11.0); RBC 3.31 10^6/uL (4.36-5.78); RDW 26.5 % (11.8-14.1); RDW-SD 83.7 fL
[2024-11-23 07:50] LABS: Absolute Lymphocyte Count 34.15 10^3/uL (1.2-3.4); Absolute Neutrophil Count 4.94 10^3/uL (1.2-6.7)
[2024-11-23 07:51] LABS: Absolute Monocyte Count 0.41 10^3/uL (0.1-0.8); Anisocytosis 2+; Diff Comment Manual Differential; Other Cells % 4; Platelet Count 74 10^3/uL (130-400)
[2024-11-23 07:52] LABS: ALT 17 U/L (16-63); AST 22 U/L (15-37); Alkaline Phosphatase 101 U/L (46-116); Anion Gap 8.3 mmol/L (3-11); BUN 25 mg/dL (7-18); Bilirubin, Total 0.6 mg/dL (0.2-1.0); CO2 26.7 mmol/L (21.0-32.0); CREATININE 1.7 mg/dL (0.70-1.30); Calcium 9.1 mg/dL (8.5-10.1); Chloride 103 mmol/L (98-107); Estimated GFR 39.51 (mL/min/1.73m2); Glucose 193 mg/dL (74-106); LDH 278 U/L (85-227); Potassium 4.4 mmol/L (3.5-5.1); Sodium 138 mmol/L (136-145); Total Protein 7.9 g/dL (6.4-8.2)
[2024-11-23 08:07] LABS: Iron 73 ug/dL (65-175); Total Iron Binding Capacity 309 ug/dL (250-450); Transferrin Sat 24 % (20-55)
[2024-11-23 08:12] LABS: WBC 41.14 10^3/uL (4.4-10.8)
[2024-11-23 08:21] LABS: Ferritin 242 ng/mL (26-388)
[2024-11-30 13:36] LABS: Basophils % 0.3 %; HCT 29.6 % (40.0-50.0); HGB 8.8 g/dL (13.5-17.5); MCH 26.1 pg (27.0-33.0); MCHC 29.7 % (32.0-36.0); MCV 88 fL (80-95); MPV 9.4 fL (8.0-11.0); Nucleated RBC 1.2 % (0.0-0.3); Platelet Count 104 10^3/uL (130-400); RBC 3.37 10^6/uL (4.36-5.78); RDW 26.1 % (11.8-14.1); RDW-SD 82.9 fL
[2024-11-30 13:50] LABS: Iron 88 ug/dL (65-175); Total Iron Binding Capacity 323 ug/dL (250-450); Transferrin Sat 27 % (20-55)
[2024-11-30 13:51] LABS: ALT 20 U/L (16-63); AST 13 U/L (15-37); Albumin 3.1 g/dL (3.4-5.0); Alkaline Phosphatase 86 U/L (46-116); BUN 33 mg/dL (7-18); Bilirubin, Total 0.6 mg/dL (0.2-1.0); CREATININE 1.4 mg/dL (0.70-1.30); Calcium 8.7 mg/dL (8.5-10.1); Chloride 100 mmol/L (98-107); Estimated GFR 49.87 (mL/min/1.73m2); Glucose 360 mg/dL (74-106); LDH 248 U/L (85-227); Potassium 4.7 mmol/L (3.5-5.1); Sodium 136 mmol/L (136-145); Total Protein 7.8 g/dL (6.4-8.2)
[2024-11-30 14:20] LABS: Ferritin 232 ng/mL (26-388)
[2024-11-30 14:40] LABS: Absolute Basophil Count 0.14 10^3/uL (0.0-0.2); WBC 46.61 10^3/uL (4.4-10.8)
[2024-11-30 14:41] LABS: Absolute Neutrophil Count 7.92 10^3/uL (1.2-6.7); Bands % 1 %
[2024-11-30 14:42] LABS: Absolute Lymphocyte Count 36.82 10^3/uL (1.2-3.4); Metamyelocytes % 1
[2024-11-30 14:43] LABS: Anisocytosis 2+; Diff Comment Manual Differential; Other Cells % 1
[2024-12-07] MEDS: Normal Saline Flush 10 ML SYR IVP (08:10)
[2024-12-07 08:44] LABS: Absolute Lymphocyte Count 84.03 10^3/uL (1.2-3.4); Absolute Monocyte Count 11.29 10^3/uL (0.1-0.8); Absolute Neutrophil Count 8.26 10^3/uL (1.2-6.7); Basophils % 0.1 %; Eosinophils % 0.1 %; HCT 34.4 % (40.0-50.0); Immature Grans % 0.7 %; Lymphocytes % 80.4 %; MCHC 29.1 % (32.0-36.0); MCV 89 fL (80-95); Monocytes % 10.8 %; Neutrophils % 7.9 %; Nucleated RBC 0.4 % (0.0-0.3); RBC 3.85 10^6/uL (4.36-5.78); RDW 26.9 % (11.8-14.1); RDW-SD 87.3 fL
[2024-12-07 09:06] LABS: ALT 20 U/L (16-63); AST 11 U/L (15-37); Albumin 3.3 g/dL (3.4-5.0); Alkaline Phosphatase 88 U/L (46-116); Anion Gap 6.8 mmol/L (3-11); BUN 27 mg/dL (7-18); CO2 29.2 mmol/L (21.0-32.0); CREATININE 1.3 mg/dL (0.70-1.30); Chloride 102 mmol/L (98-107); Estimated GFR 54.51 (mL/min/1.73m2); Glucose 231 mg/dL (74-106); LDH 225 U/L (85-227); Potassium 4.3 mmol/L (3.5-5.1); Sodium 138 mmol/L (136-145); Total Protein 7.6 g/dL (6.4-8.2)
[2024-12-07 09:10] LABS: Iron 42 ug/dL (65-175); Total Iron Binding Capacity 363 ug/dL (250-450); Transferrin Sat 12 % (20-55)
[2024-12-07 09:21] LABS: WBC 104.52 10^3/uL (4.4-10.8)
[2024-12-07 09:22] LABS: Diff Comment Agrees w/ Instrument
[2024-12-07 09:23] LABS: Anisocytosis 2+; Ovalocytes 2+
[2024-12-07 09:24] LABS: Poikilocytes 1+
[2024-12-07 09:25] LABS: Platelet Count 67 10^3/uL (130-400)
[2024-12-07 10:10] LABS: Ferritin 173 ng/mL (26-388)
== END 2024-12-12 23:59 | disposition home or self-care (01) ==
LOC: INF 00:40
PROVIDERS: Family Medicine; PCP Nurse Practitioner Family; Visit Provider Internal Medicine Hematology & Oncology
DX: C83.18 Mantle cell lymphoma, lymph nodes of multiple sites (principal); Z45.2 Encounter for adjustment and management of vascular access device
CPT/HCPCS: 36415; 36430; 36591; 80048; 80053; 86850; 86900; 86901; 86920; 96523; 82728; 83540; 83550; 83615; 85025; P9016

== ENCOUNTER 2024-12-19 14:30 | Outpatient (REF) | payer MEDICARE, SELFPAY ==
[2024-12-19 21:08] LABS: Anion Gap 9.8 mmol/L (3-11); BUN 16 mg/dL (7-18); CO2 28.2 mmol/L (21.0-32.0); Calcium 8.9 mg/dL (8.5-10.1); Chloride 104 mmol/L (98-107); Estimated GFR 54.51 (mL/min/1.73m2); Glucose 133 mg/dL (74-106); Potassium 4.7 mmol/L (3.5-5.1); Sodium 142 mmol/L (136-145)
== END 2024-12-19 14:31 | disposition home or self-care (01) ==
LOC: LBN 14:30
PROVIDERS: PCP Nurse Practitioner Family; Visit Provider Nurse Practitioner Family
DX: E11.9 Type 2 diabetes mellitus without complications (principal)
CPT/HCPCS: 80048

== ENCOUNTER 2024-12-26 02:26 | Outpatient (CLI) | payer MEDICARE, SELFPAY ==
--- NOTE | 2024-12-26 | DI.CT_ITS ---
Exam(s) CT ABDOMEN PELVIS WO/W EXAM: CT ABDOMEN PELVIS WO/W CLINICAL HISTORY: LYMPHOMA,NOW LT FLANK/BACK PAIN,? KIDNEY STONE, SPLEEN INFARCTION OR OTHER, TECHNIQUE: Imaging Protocol: Axial computed tomography images with coronal and sagittal reformatted images were created and reviewed. CONTRAST MATERIAL: Intravenous: Omnipaque 350 Contrast volume:75 mL Oral: Yes COMPARISON: CT CT CHEST PE CTA from 07/10/[address] ABDOMEN PELVIS WO/W from 09/08/2024 FINDINGS: ABDOMEN: Lung Bases: There is a small hiatal hernia. There is mild pulmonary fibrosis in the lung bases. Liver: Normal density. No measurable mass. Portal, Superior Mesenteric, and Splenic Veins: Unremarkable. Gallbladder and Biliary Tract: No radiodense calculus or dilation. Pancreas: Normal density, no abnormal calcifications or inflammatory process. Spleen: The spleen is enlarged measuring 17 cm. There is a wedge-shaped area of decreased attenuation in the lateral aspect of the spleen. Adrenals: No masses seen. Kidneys: Normal size, contour and axis. There is bilateral nephrolithiasis without evidence of hydronephrosis. There are few tiny hypodensities in the left kidney which are too small for further characterization but likely reflect small cysts. There is also simple cyst in the lower pole of the right kidney. No follow-up is recommended. Abdominal Aorta: Abdominal portion non-dilated. Atherosclerotic calcification is present. Bowel: Colonic diverticulosis is present but there is no evidence of acute diverticulitis. There is no evidence of bowel obstruction or bowel wall thickening. Appendix is unremarkable. Peritoneal Cavity: No ascites, collection or mesenteric inflammatory response. No free air. Lymph Nodes: Since the prior examination, there has been a decrease in size of the lower thoracic, abdominal and pelvic adenopathy. For instance, there is a left periaortic lymph node measuring 2.9 x 1.6 cm on the current examination. This compares to 4.8 x 2.5 cm on the prior examination. Bones: Within normal limits for the patient's age. Soft Tissues: There is a small fat containing umbilical hernia. PELVIS: Bladder: The urinary bladder is incompletely distended limiting evaluation. Reproductive Organs: Prostate gland appears mildly enlarged. Lymph Nodes: Within normal limits. Bones: Within normal limits for the patient's age. IMPRESSION: 1. Bilateral nephrolithiasis without evidence of hydronephrosis. 2. No acute abdominal or pelvic process. 3. Interval decrease in size of the visualized lower thoracic, abdominal pelvic adenopathy since 09/08/2024. 4. Splenomegaly. There is a wedge-shaped area of decreased attenuation in the lateral aspect of the spleen. This may represent a splenic infarct. RADIATION DOSE DELIVERED: 1,366.5mGy.cm Total DLP DATA REPOSITORY: All CT scans at this facility are submitted to the National Radiology Data Registry (NRDR) Dose Index Registry (DIR) with the [employer] ([employer]). RADIATION OPTIMIZATION: All CT scans at this facility use at least one of these dose optimization techniques: automated exposure control; mA and/or kV adjustment per patient size (includes targeted exams where dose is matched to clinical indication); or iterative reconstruction.
[2024-12-26] MEDS: Barium Sulfate 2% W/V-Creamy Vanilla Smoothie 450 ML BTL PO ×2 (07:39→07:40)
[2024-12-26] MEDS: Omnipaque 350 MG/ML 500 ML BTL-Imaging package 75 ML IJ (10:04)
[2024-12-26] MEDS: Normal Saline - Diluent 50 ML VIAL IJ (10:05)
== END 2024-12-26 02:46 ==
LOC: DI 02:26
PROVIDERS: PCP Nurse Practitioner Family; Visit Provider Internal Medicine Hematology & Oncology
DX: N20.0 Calculus of kidney (principal)
CPT/HCPCS: 74178

== ENCOUNTER 2024-12-30 07:00 | Outpatient (RCR) | payer MEDICARE, SELFPAY ==
[2024-12-26 07:45] LABS: Abs Immature Grans 0.08 10^3/uL (0.0-0.06); HCT 34.6 % (40.0-50.0); HGB 10.7 g/dL (13.5-17.5); Immature Grans % 0.2 %; MCH 27.5 pg (27.0-33.0); MCHC 30.9 % (32.0-36.0); MCV 89 fL (80-95); MPV 9.4 fL (8.0-11.0); Platelet Count 180 10^3/uL (130-400); RBC 3.89 10^6/uL (4.36-5.78); RDW 23.6 % (11.8-14.1); RDW-SD 77.6 fL
[2024-12-26 07:59] LABS: Anisocytosis 2+
[2024-12-26] MEDS: Normal Saline Flush 10 ML SYR IVP (07:59)
[2024-12-26 08:00] LABS: Hypochromasia 1+; Poikilocytes 1+
[2024-12-26 08:03] LABS: Iron 59 ug/dL (65-175); Total Iron Binding Capacity 329 ug/dL (250-450); Transferrin Sat 18 % (20-55)
[2024-12-26 08:05] LABS: WBC 38.08 10^3/uL (4.4-10.8)
[2024-12-26 08:11] LABS: ALT 15 U/L (16-63); AST 14 U/L (15-37); Albumin 3.2 g/dL (3.4-5.0); Alkaline Phosphatase 69 U/L (46-116); Anion Gap 7.4 mmol/L (3-11); BUN 15 mg/dL (7-18); Bilirubin, Total 0.5 mg/dL (0.2-1.0); CO2 29.6 mmol/L (21.0-32.0); Calcium 9.0 mg/dL (8.5-10.1); Chloride 105 mmol/L (98-107); Estimated GFR 60.00 (mL/min/1.73m2); Glucose 110 mg/dL (74-106); LDH 180 U/L (85-227); Potassium 4.5 mmol/L (3.5-5.1); Sodium 142 mmol/L (136-145); Total Protein 7.2 g/dL (6.4-8.2)
[2024-12-26 08:38] LABS: Ferritin 61 ng/mL (26-388)
[2024-12-30] MEDS: Normal Saline Flush 10 ML SYR IVP (07:26)
[2024-12-30 07:36] LABS: Abs Immature Grans 0.14 10^3/uL (0.0-0.06); HCT 33.2 % (40.0-50.0); HGB 10.2 g/dL (13.5-17.5); MCH 27.2 pg (27.0-33.0); MCHC 30.7 % (32.0-36.0); MCV 89 fL (80-95); MPV 9.2 fL (8.0-11.0); Platelet Count 173 10^3/uL (130-400); RBC 3.75 10^6/uL (4.36-5.78); RDW 22.6 % (11.8-14.1); RDW-SD 74.2 fL
[2024-12-30 07:53] LABS: Immature Grans % 0.0 %
[2024-12-30 07:57] LABS: ALT 17 U/L (16-63); AST 12 U/L (15-37); Albumin 3.4 g/dL (3.4-5.0); Alkaline Phosphatase 62 U/L (46-116); Anion Gap 7.8 mmol/L (3-11); BUN 21 mg/dL (7-18); Bilirubin, Total 0.6 mg/dL (0.2-1.0); CO2 30.2 mmol/L (21.0-32.0); Calcium 9.2 mg/dL (8.5-10.1); Chloride 102 mmol/L (98-107); Estimated GFR 60.00 (mL/min/1.73m2); Glucose 122 mg/dL (74-106); LDH 178 U/L (85-227); Potassium 4.2 mmol/L (3.5-5.1); Sodium 140 mmol/L (136-145); Total Protein 7.4 g/dL (6.4-8.2)
[2024-12-30 08:01] LABS: Iron 55 ug/dL (65-175); Total Iron Binding Capacity 365 ug/dL (250-450); Transferrin Sat 15 % (20-55)
[2024-12-30 08:08] LABS: WBC 40.84 10^3/uL (4.4-10.8)
[2024-12-30 08:09] LABS: Anisocytosis 2+
[2024-12-30 08:46] LABS: Ferritin 52 ng/mL (26-388)
== END 2025-01-12 23:59 | disposition home or self-care (01) ==
LOC: INF 07:00
PROVIDERS: PCP Nurse Practitioner Family; Visit Provider Internal Medicine Hematology & Oncology
DX: C83.18 Mantle cell lymphoma, lymph nodes of multiple sites (principal); D50.0 Iron deficiency anemia secondary to blood loss (chronic); Z45.2 Encounter for adjustment and management of vascular access device
CPT/HCPCS: 36591; 80053; 86850; 86900; 86901; 82728; 83540; 83550; 83615; 85025

== ENCOUNTER 2025-01-25 03:34 | Outpatient (RCR) | payer MEDICARE, SELFPAY ==
[2025-01-25] MEDS: Normal Saline Flush 10 ML SYR IVP (11:20)
[2025-01-25 11:30] LABS: Abs Immature Grans 0.05 10^3/uL (0.0-0.06); HCT 38.1 % (40.0-50.0); HGB 11.8 g/dL (13.5-17.5); Immature Grans % 0.6 %; MCH 26.8 pg (27.0-33.0); MCHC 31.0 % (32.0-36.0); MCV 86 fL (80-95); MPV 9.0 fL (8.0-11.0); Platelet Count 256 10^3/uL (130-400); RBC 4.41 10^6/uL (4.36-5.78); RDW 17.6 % (11.8-14.1); RDW-SD 55.8 fL; WBC 7.82 10^3/uL (4.4-10.8)
[2025-01-25 12:04] LABS: ALT 21 U/L (16-63); AST 18 U/L (15-37); Albumin 3.5 g/dL (3.4-5.0); Alkaline Phosphatase 53 U/L (46-116); Anion Gap 6.1 mmol/L (3-11); BUN 14 mg/dL (7-18); Bilirubin, Total 0.8 mg/dL (0.2-1.0); CO2 28.9 mmol/L (21.0-32.0); Calcium 8.8 mg/dL (8.5-10.1); Chloride 103 mmol/L (98-107); Estimated GFR 54.17 (mL/min/1.73m2); Ferritin 14 ng/mL (26-388); Glucose 120 mg/dL (74-106); LDH 193 U/L (85-227); Potassium 4.2 mmol/L (3.5-5.1); Sodium 138 mmol/L (136-145); Total Protein 7.3 g/dL (6.4-8.2)
[2025-01-26 18:04] LABS: Iron 41 ug/dL (65-175); Total Iron Binding Capacity 411 ug/dL (250-450); Transferrin Sat 10 % (20-55)
== END 2025-02-12 23:59 | disposition home or self-care (01) ==
LOC: INF 03:34
PROVIDERS: PCP Nurse Practitioner Family; Visit Provider Internal Medicine Hematology & Oncology
DX: C83.18 Mantle cell lymphoma, lymph nodes of multiple sites (principal); Z45.2 Encounter for adjustment and management of vascular access device
CPT/HCPCS: 36591; 80053; 82728; 83540; 83550; 83615; 85025

== ENCOUNTER 2025-02-15 17:07 | Emergency (ER) | payer MEDICARE, SELFPAY ==
[2025-02-15] VITALS (16 sets, daily range): BP systolic 135–151; BP diastolic 76–89; PULSE 77–92; RESP 18; TEMP 36.3; O2SAT 94–98
--- NOTE | 2025-02-15 17:27 | DI.RAD_ITS ---
Exam(s) XR WRIST RT COMPL NAVICULAR EXAM: XR WRIST RT COMPL NAVICULAR CLINICAL HISTORY: fall, R wrist pain. TECHNIQUE: 2D digital imaging was performed. Three views. COMPARISON: CR RIGHT WRIST COMPLETE from 05/28/2009 CR LEFT WRIST COMPLETE from 01/06/2018 FINDINGS: BONES: No acute fracture is present. No bony destructive lesion is seen. JOINTS: There is narrowing of the capitate lunate joint as well as triscaphe joint as well as the 1st carpal metacarpal joint. SOFT TISSUE: Multiple calcifications are again noted around the ulnar styloid and ventral aspect of the wrist, increasing from the previous exam 15 years ago. IMPRESSION: Degenerative changes and chronic soft tissue calcifications. No evidence of acute fracture. DATA REPOSITORY: RADIATION DOSE DELIVERED:
--- NOTE | 2025-02-15 17:30 | DI.CT_ITS ---
Exam(s) CT HEAD CERV SPINE FACIAL WO EXAM: CT HEAD CERV SPINE FACIAL WO CLINICAL HISTORY: fall, head trauma. TECHNIQUE: Imaging Protocol: Axial computed tomography images with coronal and sagittal reformatted images were created and reviewed COMPARISON: MR MRA HEAD WO from 08/15/2016 MR MRI - BRAIN W/WO CONTRAST from 08/15/2016 FINDINGS: CT Head: Ventricles and Extra axial spaces: The ventricles are normal in size and morphology for the patient's age. Moderate atrophy. Stable appearance of the large CSF collection in the anterior left temporal region through the left frontal region. Hemorrhage: None. Cerebral parenchyma: No evidence of acute hemorrhage or acute infarct. Midline shift: None. Brainstem/Cerebellum: Normal. Calvarium: Normal. Visualized Paranasal sinuses/Mastoids: Clear. Soft Tissues: Air in the soft tissues and swelling at the left frontal region. CT Face: Facial Bones: No fracture is noted in facial bones. Sinuses and Mastoids: Minimal mucous retention cyst in the right maxillary sinus. Globes, extraocular muscles, optic nerves and retrobulbar fat: Normal. Upper aerodigestive tract: Normal. Mandible and bilateral temporomandibular joints: Normal. Soft tissues: Swelling and small amount of air in the left frontal region. CT Cervical Spine: Bones: No acute fracture or subluxation. Degenerative disc changes are present at C4-5 through C6-7. Facet degenerative changes are present greatest at C 2 3 and C3-4. Degenerative straightening of the normal cervical lordosis. Soft Tissues: Unremarkable. Lung Apices: Emphysematous changes. No pneumothorax. IMPRESSION: 1. No acute intracranial process. 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 No mass effect. 2. No acute fracture or subluxation in the cervical spine. Degenerative changes. 3. No acute facial fracture. Soft tissue swelling of the left frontal region. RADIATION DOSE DELIVERED: Total DLP DATA REPOSITORY: All CT scans at this facility are submitted to the National Radiology Data Registry (NRDR) Dose Index Registry (DIR) with the [employer] (ACR). RADIATION OPTIMIZATION: All CT scans at this facility use at least one of these dose optimization techniques: automated exposure control; mA and/or kV adjustment per patient size (includes targeted exams where dose is matched to clinical indication); or iterative reconstruction.
--- NOTE | 2025-02-15 18:15 | W.ED.GENAD ---
Discharge Plan Disposition Patient Disposition: Home Condition: Stable Discharge Details Clinical Impression: Fall, Forehead laceration, Multiple abrasions Primary Care Provider: Vinod Morales ED Provider: Alberto Arthur Home Meds and New Rx's Prescriptions: Continued omeprazole 20 mg capsule,delayed release(DR/EC) 40 mg PO DAILY Qty: 60 2RF Rx Instructions: OTC (DME) lancets [Accu-Chek Softclix Lancets] Misc See Rx Instructions .Route Qty: 100 3RF Rx Instructions: Twice daily (DME) blood-glucose meter [Accu-Chek Pamela Plus Meter] Misc See Rx Instructions .Route Qty: 1 1RF Rx Instructions: Twice daily magnesium 200 mg tablet 200 mg PO DAILY potassium 99 mg tablet 99 mg PO DAILY cholecalciferol (vitamin D3) [Vitamin D3] 400 unit tablet 2,000 unit PO DAILY allopurinol 100 mg tablet 100 mg PO DAILY Patient Comments: TAKE ONE TABLET BY MOUTH EVERY DAY Jardiance 10 mg tablet 10 mg PO DAILY Qty: 30 1RF Eliquis 5 mg tablet 5 mg PO BID Qty: 180 3RF (DME) Accu-Chek Pamela Plus test strp Strip See Rx Instructions .ROUTE .COMPLEX Qty: 100 3RF Dose Instruction: TEST TWO TIMES A DAY Rx Instructions: TEST TWO TIMES A DAY amlodipine 5 mg tablet 5 mg PO DAILY Qty: 90 3RF Dulera 100-5 mcg/actuation HFA aerosol inhaler 2 puff inhalation Q12H Qty: 13 12RF acyclovir 400 mg tablet 400 mg PO DAILY Patient Comments: TAKE ONE TABLET BY MOUTH TWICE A DAY Discharge Instructions Instructions: Laceration Repair With Stitches ED Additional Instructions: You were seen in the emergency department [place] with forehead laceration, nasal abrasion, abrasion to the right forearm and right palm, perform simple wound care with Neosporin and bandages on your abrasions, place Neosporin on the forehead laceration for the first 48 hours then just keep it clean and dry with daily dressing changes. Please return for any signs of infection or neurologic abnormalities, otherwise return for suture removal in 7 to 10 days. Referrals: Vinod Morales, FAROOQ [Primary Care Provider, Medicine] Discharge Data Discharge Date/Time-TO BE ENTERED AT DEPARTURE: 02/15/25 21:33 HPI General Date/Time Provider Initiated Documentation: 02/15/25 17:24. HPI Narrative: 85 year-old male presents to ED today by POV/ambulating with a [place], with facial trauma, headstrike without LOC, and multiple abrasions to hands, and R forearm with onset just prior to arrival. Quality described as gash to forehead, abrasion to nose, and palmar abrasions, no radiation to LOC, nausea/vomiting, slurred speech, altered mentation, deformity to wrists, numbness/tingling, palpitations prior to fall, visual changes. Severity is described as moderate to severe. Palliating factors include nothing specific attempted. Provoking factors include palpation. Patient is anticoagulated on Eliquis. Related Data Home Medications ?Medication ?Instructions ?Recorded ?Confirmed cholecalciferol (vitamin D3) 10 2,000 unit PO DAILY 02/17/19 02/15/25 mcg (400 unit) tablet (Vitamin D3) omeprazole 20 mg capsule,delayed 40 mg (2 x 20 mg) PO DAILY #60 caps 04/17/21 02/15/25 release blood-glucose meter (Accu-Chek #1 ea 12/27/21 02/15/25 Pamela Plus Meter) lancets (Accu-Chek Softclix #100 ea 12/27/21 02/15/25 Lancets) apixaban 5 mg tablet (Eliquis) 5 mg PO BID #180 tabs 04/27/24 02/15/25 magnesium 200 mg tablet 200 mg PO DAILY 07/29/24 02/15/25 potassium 99 mg tablet 99 mg PO DAILY 07/29/24 02/15/25 blood sugar diagnostic (Accu-Chek #100 strips 09/26/24 02/15/25 Pamela Plus test strips) amlodipine 5 mg tablet 5 mg PO DAILY #90 tabs 10/24/24 02/15/25 mometasone-formoterol HFA 100 2 puff inhalation Q12H #13 grams 11/09/24 02/15/25 mcg-5 mcg/actuation aerosol inhaler (Dulera) allopurinol 100 mg tablet 100 mg PO DAILY 11/18/24 02/15/25 empagliflozin 10 mg tablet 10 mg PO DAILY #30 tabs 11/18/24 02/15/25 (Jardiance) acyclovir 400 mg tablet 400 mg PO DAILY 02/15/25 02/15/25 Previous Rx's ?Medication ?Instructions ?Recorded omeprazole 20 mg capsule,delayed 40 mg (2 x 20 mg) PO DAILY #60 caps 04/17/21 release blood-glucose meter (Accu-Chek #1 ea 12/27/21 Pamela Plus Meter) lancets (Accu-Chek Softclix #100 ea 12/27/21 Lancets) apixaban 5 mg tablet (Eliquis) 5 mg PO BID #180 tabs 04/27/24 blood sugar diagnostic (Accu-Chek #100 strips 09/26/24 Pamela Plus test strips) amlodipine 5 mg tablet 5 mg PO DAILY #90 tabs 10/24/24 mometasone-formoterol HFA 100 2 puff inhalation Q12H #13 grams 11/09/24 mcg-5 mcg/actuation aerosol inhaler (Dulera) empagliflozin 10 mg tablet 10 mg PO DAILY #30 tabs 11/18/24 (Jardiance) Allergies Allergy/AdvReac Type Severity Reaction Status Date / Time citric acid Allergy Mild Hives Verified 02/15/25 17:20 General Stated Complaint: Fall/Non TraumaCriteria ALBINO: 3 Review of Systems All systems reviewed & are unremarkable except as noted in HPI and below Exam Narrative Exam Narrative: GENERAL APPEARANCE: Well-nourished, non-toxic, awake and alert, atraumatic, no acute distress. SKIN: Warm, pink, dry, irregular 5 cm?in the central forehead, abrasion to nasal bridge, minor superficial abrasions to the chin, abrasions to bilateral palms and right distal elbow HEAD: Normocephalic, normal hair distribution for gender/age. EYES: Normal conjunctiva, no exudates on lids/lashes. ENT: Nares patent, no circumoral cyanosis, no facial swelling, no periorbital ecchymosis, no Rueda's sign NECK: Supple, trachea midline, painless cervical ROM. LUNGS/CHEST: Lungs CTA bilaterally- no rhonchi/rales/wheezes diffusely, non-labored respirations, normal A/P diameter, symmetrical expansion, no chest wall deformity HEART (CV/PV): Regular rate and rhythm without murmur, bilat radial pulses 2+, no peripheral edema, no JVD. ABDOMEN: Soft, non-distended, no guarding, no tenderness MSK: Normal ROM, no deformity to bilateral UEs or LEs, employment law specialist strength 5/5 bilat, no anatomical snuff box tenderness to R wrist, moving all extremities without weakness, no cyanosis, spine midline without tenderness, normal curvature. NEURO: Mental Status AAOx4 - alert to person, place, time, events No facial droop, no forehead involvement. Motor: No focal weakness - strength 5/5 in bilateral UEs and LEs, proximal and distal, symmetric. Sensory: sensation intact to light touch globally. Gait normal: patient ambulated without ataxia into ED room. PSYCH: euthymic, cooperative, pleasant, appropriate speech Course Vital Signs Vital signs: Vital Signs Temperature 36.3 C L 02/15/25 17:09 Pulse 92 H 02/15/25 17:09 Respiratory Rate 18 02/15/25 17:09 Blood Pressure 146/76 H 02/15/25 17:09 Temperature 36.3 C L 02/15/25 17:09 Temperature Source Oral 02/15/25 17:09 Pulse 92 H 02/15/25 17:09 Respiratory Rate 18 02/15/25 17:09 Blood Pressure 146/76 H 02/15/25 17:09 Oxygen Delivery Method Room Air 02/15/25 17:09 Oxygen Flow Rate 0 02/15/25 17:09 Pain Level 6 02/15/25 17:09 Procedure Laceration Laceration 1: Provider that performed the procedure: Alberto Arthur Standard Time Out Performed: No Patient Consented: Verbally Site: face Description: irregular Depth: simple, single layer Local anesthetic: Lidocaine 1% Amount of anesthesia used (mL): 5 Pre-repair:: wound explored, irrigated extensively and deep structures intact Skin layer closed with: nylon Suture size: 6-0 Number of sutures:: 4 Technique: simple, interrupted and other (with 2 steri-strips over part of the wound not amenable to suture) Complications: None Medical Decision Making This dictation utilizes [id number] dictation software and may contain unedited grammatical errors. 85 year-old male presents to ED today by POV/ambulating with a [place], with facial trauma, headstrike without LOC, and multiple abrasions to hands, and R forearm with onset just prior to arrival. Quality described as gash to forehead, abrasion to nose, and palmar abrasions, no radiation to LOC, nausea/vomiting, slurred speech, altered mentation, deformity to wrists, numbness/tingling, palpitations prior to fall, visual changes. Severity is described as moderate to severe. Palliating factors include nothing specific attempted. Provoking factors include palpation. Patients' medical history: Mantle cell lymphoma, shortness of breath on exertion, DVT, diabetes mellitus, hypertension. Family and social history: stays active, lives at home with family. Pertinent exam findings / vital signs include irregular 5 cm?in the central forehead, abrasion to nasal bridge, minor superficial abrasions to the chin, abrasions to bilateral palms and right distal elbow, neuro intact, benign cardiopulmonary exam, benign abdomen, no hip tenderness, neurovascularly intact in all extremities, more focal tenderness at R wrist than elsewhere to other abrasions, no deformity, bilateral radial pulses 2+, ROM intact in fingers, no deformity to R wrist. Differential / pathologies of concern include ICH, laceration, fracture, abrasions. Diagnostic studies of: -CT head/C-spine, facial bones, XR R wrist, CBC, CMP, PT/PTT, troponin, BNP, TSH, lipase, type and screen. - CT head and C-spine shows no intracranial processes, no fracture of the C-spine, no facial fracture, soft tissue swelling around his forehead abrasion/laceration - X-ray of right wrist shows no acute fracture - CBC shows baseline anemia - CMP is unremarkable - Serial troponins negative - BNP negative - Lipase negative - TSH within normal limits - Coagulation studies benign - Type and screen a negative with negative antibody screen Interventions of: -Suture repair with 4 sutures of 6-0 prolene, and 2 steri-strips, of his forehead laceration the other abrasions were not amenable to suture repair, counseled on use of Tylenol and ice to various areas of bumps and bruises. ED Course/Assessment/Plan: 85-year-old male with long-term anticoagulant use had a fall in the [employer] with head strike causing complex abrasions to his face and hands as well as a laceration to his forehead which required suture repair, the other areas of pain did not require any surgical intervention, they were cleaned and dressed with bandages, x-ray to the right wrist shows no acute fracture, no fracture in the face C-spine or head, no intracranial bleeding has a remote likely cyst that is well calcified, counseled on routine return for suture removal, general wound care diligently each day and return criteria for any neurologic changes or signs of infection. Findings not consistent with intracranial hemorrhage, fracture, respiratory distress, neurologic deficit. Disposition of multiple abrasions, forehead laceration, fall. Patient verbalized understanding of the plan and return to ED criteria and engaged in shared decision making. Medical Records Medical records reviewed: Yes I reviewed the patient's medical records. Imaging Data Radiologic Study: Attestation: I personally reviewed and interpreted this imaging study as follows: Imaging: CT Scan Radiologist's impression: EXAM: CT HEAD CERV SPINE FACIAL WO CLINICAL HISTORY: fall, head trauma. TECHNIQUE: Imaging Protocol: Axial computed tomography images with coronal and sagittal reformatted images were created and reviewed COMPARISON: MR MRA HEAD WO from 08/15/2016 MR MRI - BRAIN W/WO CONTRAST from 08/15/2016 FINDINGS: CT Head: Ventricles and Extra axial spaces: The ventricles are normal in size and morphology for the patient's age. Moderate atrophy. Stable appearance of the large CSF collection in the anterior left temporal region through the left frontal region. Hemorrhage: None. Cerebral parenchyma: No evidence of acute hemorrhage or acute infarct. Midline shift: None. Brainstem/Cerebellum: Normal. Calvarium: Normal. Visualized Paranasal sinuses/Mastoids: Clear. Soft Tissues: Air in the soft tissues and swelling at the left frontal region. CT Face: Facial Bones: No fracture is noted in facial bones. Sinuses and Mastoids: Minimal mucous retention cyst in the right maxillary sinus. Globes, extraocular muscles, optic nerves and retrobulbar fat: Normal. Upper aerodigestive tract: Normal. Mandible and bilateral temporomandibular joints: Normal. Soft tissues: Swelling and small amount of air in the left frontal region. CT Cervical Spine: Bones: No acute fracture or subluxation. Degenerative disc changes are present at C4-5 through C6-7. Facet degenerative changes are present greatest at C 2 3 and C3-4. Degenerative straightening of the normal cervical lordosis. Soft Tissues: Unremarkable. Lung Apices: Emphysematous changes. No pneumothorax. IMPRESSION: 1. No acute intracranial process. 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 No mass effect. 2. No acute fracture or subluxation in the cervical spine. Degenerative changes. 3. No acute facial fracture. Soft tissue swelling of the left frontal region. Radiologic Study #2: Attestation: I personally reviewed and interpreted this imaging study as follows: Imaging: X-Ray Radiologist's impression: EXAM: XR WRIST RT COMPL NAVICULAR CLINICAL HISTORY: fall, R wrist pain. TECHNIQUE: 2D digital imaging was performed. Three views. COMPARISON: CR RIGHT WRIST COMPLETE from 05/28/2009 CR LEFT WRIST COMPLETE from 01/06/2018 FINDINGS: BONES: No acute fracture is present. No bony destructive lesion is seen. JOINTS: There is narrowing of the capitate lunate joint as well as triscaphe joint as well as the 1st carpal metacarpal joint. SOFT TISSUE: Multiple calcifications are again noted around the ulnar styloid and ventral aspect of the wrist, increasing from the previous exam 15 years ago. IMPRESSION: Degenerative changes and chronic soft tissue calcifications. No evidence of acute fracture. Lab Data Lab results reviewed: Yes I reviewed the patient's lab results. Labs: Laboratory Tests Range/Units 02/15/25 02/15/25 02/15/25 18:05 18:42 20:26 WBC (4.4-10.8) 10^3/uL 6.83 RBC (4.36-5.78) 10^6/uL 4.72 Hgb (13.5-17.5) g/dL 12.6 L Hct (40.0-50.0) % 39.6 L MCV (80-95) fL 84 MCH (27.0-33.0) pg 26.7 L MCHC (32.0-36.0) % 31.8 L RDW (11.8-14.1) % 15.8 H Plt Count (130-400) 10^3/uL 269 MPV (8.0-11.0) fL 9.3 Immature Gran % % 1.9 Neutrophils % % 51.7 Lymphocytes % % 36.0 Monocytes % % 7.0 Eosinophils % % 1.8 Basophils % % 1.6 Nucleated RBC % (0.0-0.3) % 0.0 Absolute Neutrophils (1.2-6.7) 10^3/uL 3.53 Absolute Lymphocytes (1.2-3.4) 10^3/uL 2.46 Absolute Monocytes (0.1-0.8) 10^3/uL 0.48 Absolute Eosinophils (0.0-0.7) 10^3/uL 0.12 Absolute Basophils (0.0-0.2) 10^3/uL 0.11 PT (9.1-11.1) sec 10.1 INR (0.9-1.1) 1.0 APTT (20.6-30.2) sec 23.2 Sodium Cancelled 139 Potassium Cancelled 3.8 Chloride Cancelled 104 Carbon Dioxide Cancelled 27.2 Anion Gap Cancelled 7.8 BUN Cancelled 18 Creatinine Cancelled 1.4 H Est GFR (CKD-EPI 2020) Cancelled 49.56 Glucose Cancelled 206 H Calcium Cancelled 8.5 Magnesium Cancelled Total Bilirubin Cancelled 0.6 AST Cancelled 21 ALT Cancelled 23 Alkaline Phosphatase Cancelled 48 Troponin I Cancelled 6 7 NT-Pro-B Natriuret Pep Cancelled 76 Total Protein Cancelled 7.0 Albumin Cancelled 3.4 Lipase Cancelled 38 TSH Cancelled 2.09 ABO/Rh A Negative Antibody Screen NEGATIVE PFSH All Active Problems (Updated 02/15/25 @ 21:18 by SCOOTER Farmer) Multiple abrasions (Acute) Forehead laceration (Acute) Fall (Acute) Mantle cell lymphoma (Acute) Seroma due to trauma (Acute) Hematuria (Acute) Short of breath on exertion (Acute) Lipoma (Acute) Right shoulder pain (Acute) Obesity (BMI 30-39.9) (Acute) Anticoagulant long-term use (Acute) DVT (deep venous thrombosis) (Chronic) 06/2021, extensive, involving left leg, associated with multiple PE's Also persistent modest post DVT edema left [id number] x6 months Diabetes mellitus (Chronic 2021) Essential hypertension (Acute) Erectile disorder, acquired, generalized, moderate (Acute) POLST (Physician Orders for Life-Sustaining Treatment) (Acute) Osteoarthritis (Acute) Hearing loss (Acute) GERD (gastroesophageal reflux disease) (Chronic) Medical History Microscopic hematuria History of tobacco use Has not smoked for 35 to 40 years. Migraine aura without headache (08/12/16) Does not get them any more. (he says 22 years) Injury of hand (02/05/18) Surgical History History of lymph node excision (~09/2024) Status post tonsillectomy Tonsillectomy Family History Mother , age 70 Chronic obstructive lung disease Cancer Father , age 61 Colon cancer Sister , age 74 Diabetes Essential hypertension Stroke Brother , age 72 Diabetes Lung cancer Maternal Grandfather Essential hypertension Stroke Paternal Grandfather No problems noted. Maternal Grandmother Diabetes Cancer Paternal Grandmother No problems noted. Brother Diabetes Brother No problems noted. Son No problems noted. Son No problems noted. Son No problems noted. Daughter , age 45 Cancer Social History Smoking/Tobacco Use Status: Former Tobacco Use tobacco type: cigarettes and smokeless tobacco Quit Date: 06/15/80 Tobacco: How many years used: 35 Quit status: quit date established Second Hand Exposure: Yes Smoking risk assessment performed?: Yes Alcohol Intake: current Alcohol Intake frequency: holidays/special occasions only Alcohol type: hard liquor Drug use: Never Substance use type: does not use Counseling given: No Adopted: No Caregiver/Support person: No Household members: none Housing: house Number of Children: 3 number of grandchildren: 2 Communication Needs: None Education Level: high school Do you need help understanding health information?: Rarely current occupation: Retired Pets and animals: No Sexually active: Yes Do you think of yourself as: straight/heterosexual Current gender identity: male What is your relationship status?: How often do you talk on the phone with friends or family?: three or more times per week How often do you get together with friends or relatives?: three or more times per week How often do you attend latter day or christianity services?: 4 or more times per year Do you belong to any clubs or organized social groups?: no Panel score (0-1 are the most socially isolated patients): 2 What type of physical activity do you participate in: walking Duration: 30-45 minutes/day Frequency: 3-4 times per week Edith/Restorationist: Mu-Ism Special edith needs: No Seatbelt use: always Helmet use: Yes Helmet use: sometimes Drive intox or ride w/intox tow car driver: No Firearms in home: No Do you feel safe at home: Yes Do you feel safe in your relationship?: Yes Victim of physical abuse: No Victim of emotional abuse: No Victim of sexual abuse: No Would you like helpful sources: No
[2025-02-15 18:21] LABS: Abs Immature Grans 0.13 10^3/uL (0.0-0.06); HCT 39.6 % (40.0-50.0); HGB 12.6 g/dL (13.5-17.5); Immature Grans % 1.9 %; MCH 26.7 pg (27.0-33.0); MCHC 31.8 % (32.0-36.0); MCV 84 fL (80-95); MPV 9.3 fL (8.0-11.0); Platelet Count 269 10^3/uL (130-400); RBC 4.72 10^6/uL (4.36-5.78); RDW 15.8 % (11.8-14.1); RDW-SD 47.6 fL; WBC 6.83 10^3/uL (4.4-10.8)
[2025-02-15 18:34] LABS: INR 1.0 (0.9-1.1); PTT Activated 23.2 sec (20.6-30.2); Prothrombin Time 10.1 sec (9.1-11.1)
[2025-02-15 19:14] LABS: ALT 23 U/L (16-63); AST 21 U/L (15-37); Albumin 3.4 g/dL (3.4-5.0); Alkaline Phosphatase 48 U/L (46-116); Anion Gap 7.8 mmol/L (3-11); BUN 18 mg/dL (7-18); Bilirubin, Total 0.6 mg/dL (0.2-1.0); CO2 27.2 mmol/L (21.0-32.0); Calcium 8.5 mg/dL (8.5-10.1); Chloride 104 mmol/L (98-107); Estimated GFR 49.56 (mL/min/1.73m2); Glucose 206 mg/dL (74-106); Lipase 38 U/L (<78); NT-proBNP 76 pg/mL (<300); Potassium 3.8 mmol/L (3.5-5.1); Sodium 139 mmol/L (136-145); TSH (W/Ref FT4) 2.09 uIU/mL (0.36-3.74); Total Protein 7.0 g/dL (6.4-8.2); Troponin I 6 ng/L (<or=76)
[2025-02-15 20:48] LABS: Troponin I 7 ng/L (<or=76)
[2025-02-15] MEDS: Lidocaine 1% Pres-Free 5 ML VIAL IJ (21:02)
[2025-02-15] MEDS: Diph,Pertuss(Acell),Tet Vac/Pf 0.5 ML SYR IM (21:27)
== END 2025-02-15 21:33 | disposition home or self-care (01) ==
PROVIDERS: Emergency Provider Physician Assistant; PCP Nurse Practitioner Family
DX: S01.81XA Laceration without foreign body of other part of head, initial encounter (principal); W19.XXXA Unspecified fall, initial encounter; R06.02 Shortness of breath; E11.69 Type 2 diabetes mellitus with other specified complication; I10 Essential (primary) hypertension; C83.10 Mantle cell lymphoma, unspecified site
CPT/HCPCS: 99285; 99284; 90471; 12013; 80053; 83690; 86850; 86900; 86901; 90715; 70450; 70486; 72125; 73110; 83735; 83880; 84443; 84484; 85025; 85610; 85730; J2003

== ENCOUNTER → 2025-02-21 08:48 | Outpatient (BNVA) | payer MEDICARE, SELFPAY | PROVIDERS: PCP Nurse Practitioner Family; Referring Provider Nurse Practitioner Family; Visit Provider Urology | DX: R31.9 Hematuria, unspecified (principal) | CPT/HCPCS: 99214; 81002 ==

== ENCOUNTER 2025-02-21 09:51 | Emergency (ER) | payer MEDICARE, SELFPAY ==
[2025-02-21 10:03] VITALS: BP 145/63; PULSE 64; RESP 20; TEMP 36.7; O2SAT 94
--- NOTE | 2025-02-21 10:07 | W.ED.GENAD ---
Discharge Plan Disposition Patient Disposition: Home Condition: Good Discharge Details Clinical Impression: Forehead laceration Primary Care Provider: Vinod Morales ED Provider: Serena Harman Home Meds and New Rx's Prescriptions: Continued omeprazole 20 mg capsule,delayed release(DR/EC) 40 mg PO DAILY Qty: 60 2RF Rx Instructions: OTC (DME) lancets [Accu-Chek Softclix Lancets] Misc See Rx Instructions .Route Qty: 100 3RF Rx Instructions: Twice daily (DME) blood-glucose meter [Accu-Chek Pamela Plus Meter] Misc See Rx Instructions .Route Qty: 1 1RF Rx Instructions: Twice daily magnesium 200 mg tablet 200 mg PO DAILY potassium 99 mg tablet 99 mg PO DAILY cholecalciferol (vitamin D3) [Vitamin D3] 400 unit tablet 2,000 unit PO DAILY allopurinol 100 mg tablet 100 mg PO DAILY Patient Comments: TAKE ONE TABLET BY MOUTH EVERY DAY Jardiance 10 mg tablet 10 mg PO DAILY Qty: 30 1RF zanubruntinib 80 mg PO .2 tabs bid Eliquis 5 mg tablet 5 mg PO BID Qty: 180 3RF (DME) Accu-Chek Pamela Plus test strp Strip See Rx Instructions .ROUTE .COMPLEX Qty: 100 3RF Dose Instruction: TEST TWO TIMES A DAY Rx Instructions: TEST TWO TIMES A DAY amlodipine 5 mg tablet 5 mg PO DAILY Qty: 90 3RF Dulera 100-5 mcg/actuation HFA aerosol inhaler 2 puff inhalation Q12H Qty: 13 12RF acyclovir 400 mg tablet 400 mg PO DAILY Patient Comments: TAKE ONE TABLET BY MOUTH TWICE A DAY Discharge Instructions Instructions: Stitches Removal Additional Instructions: Your wound appears to be healing well. The Steri-Strips and sutures were removed. Please try to leave the remnant clot over the wound as this is likely helping with healing and pulling at this may cause you to bleed once again. Monitor wounds for signs of infection including redness, warmth, drainage, increased pain, fever/chills. If you develop these or other new/worsening symptoms please seek care urgently once again. Otherwise, please follow-up with primary care for reevaluation in 1 to 2 weeks. Referrals: Vinod Morales NP [Primary Care Provider, Medicine] Discharge Data Discharge Date/Time-TO BE ENTERED AT DEPARTURE: 02/21/25 10:51 HPI General Date/Time Provider Initiated Documentation: 02/21/25 10:07. Limitations to Documentation: no limitations. Information obtained by: patient, RN notes reviewed and old records reviewed. History of Present Illness 85 year old M presents to the emergency department with the chief complaint of scalp laceration, Quality is described as aching, Patient started experiencing this day(s) (6) and it has been now resolved. Patient notes no other symptoms.. Related Data Home Medications ?Medication ?Instructions ?Recorded ?Confirmed cholecalciferol (vitamin D3) 10 2,000 unit PO DAILY 02/17/19 02/21/25 mcg (400 unit) tablet (Vitamin D3) omeprazole 20 mg capsule,delayed 40 mg (2 x 20 mg) PO DAILY #60 caps 04/17/21 02/21/25 release blood-glucose meter (Accu-Chek #1 ea 12/27/21 02/21/25 Pamela Plus Meter) lancets (Accu-Chek Softclix #100 ea 12/27/21 02/21/25 Lancets) apixaban 5 mg tablet (Eliquis) 5 mg PO BID #180 tabs 04/27/24 02/21/25 magnesium 200 mg tablet 200 mg PO DAILY 07/29/24 02/21/25 potassium 99 mg tablet 99 mg PO DAILY 07/29/24 02/21/25 blood sugar diagnostic (Accu-Chek #100 strips 09/26/24 02/21/25 Pamela Plus test strips) amlodipine 5 mg tablet 5 mg PO DAILY #90 tabs 10/24/24 02/21/25 mometasone-formoterol HFA 100 2 puff inhalation Q12H #13 grams 11/09/24 02/21/25 mcg-5 mcg/actuation aerosol inhaler (Dulera) allopurinol 100 mg tablet 100 mg PO DAILY 11/18/24 02/21/25 empagliflozin 10 mg tablet 10 mg PO DAILY #30 tabs 11/18/24 02/21/25 (Jardiance) acyclovir 400 mg tablet 400 mg PO DAILY 02/15/25 02/21/25 zanubruntinib 80 mg PO .2 tabs bid 02/21/25 02/21/25 Previous Rx's ?Medication ?Instructions ?Recorded omeprazole 20 mg capsule,delayed 40 mg (2 x 20 mg) PO DAILY #60 caps 04/17/21 release blood-glucose meter (Accu-Chek #1 ea 12/27/21 Pamela Plus Meter) lancets (Accu-Chek Softclix #100 ea 12/27/21 Lancets) apixaban 5 mg tablet (Eliquis) 5 mg PO BID #180 tabs 04/27/24 blood sugar diagnostic (Accu-Chek #100 strips 09/26/24 Pamela Plus test strips) amlodipine 5 mg tablet 5 mg PO DAILY #90 tabs 10/24/24 mometasone-formoterol HFA 100 2 puff inhalation Q12H #13 grams 11/09/24 mcg-5 mcg/actuation aerosol inhaler (Dulera) empagliflozin 10 mg tablet 10 mg PO DAILY #30 tabs 11/18/24 (Jardiance) Allergies Allergy/AdvReac Type Severity Reaction Status Date / Time citric acid Allergy Mild Hives Verified 02/21/25 10:07 General Stated Complaint: Recheck ALBINO: 5 Review of Systems Constitutional Constitutional: Reports as per HPI, Denies chills and Denies fever(s) Musculoskeletal Musculoskeletal: Reports as per HPI Integumentary/Breasts Skin/Breast: Reports as per HPI Neurologic Neurologic: Reports as per HPI, Denies sensory deficit and Denies paresthesias Exam Const General: cooperative, healthy appearing, comfortable, no acute distress and well developed Nutritional Appearance: average body habitus and well nourished Orientation: alert and awake [facility] Head images:  1. Area of laceration. Two steristips in place with clot around these. No erythema, warmth, drainage. Resp Effort & Inspection: normal respiratory effort, able to speak in complete sentences and no respiratory distress Cardio Rate: regular rate Rhythm: regular rhythm Neuro General: patient alert and patient awake Cognition: normal cognition Speech: speech normal Gait: normal gait Sensory Exam: no sensory deficits noted Course Vital Signs Vital signs: Vital Signs Temperature 36.7 C 02/21/25 10:03 Pulse 64 02/21/25 10:03 Respiratory Rate 20 02/21/25 10:03 Blood Pressure 145/63 H 02/21/25 10:03 Pulse Oximetry 94 02/21/25 10:03 Temperature 36.7 C 02/21/25 10:03 Temperature Source Temporal Artery Scan 02/21/25 10:03 Pulse 64 02/21/25 10:03 Respiratory Rate 20 02/21/25 10:03 Blood Pressure 145/63 H 02/21/25 10:03 Blood Pressure Position Sitting 02/21/25 10:03 Pulse Oximetry 94 02/21/25 10:03 Oxygen Delivery Method Room Air 02/21/25 10:03 Oxygen Flow Rate 0 02/21/25 10:03 Pain Level 0 02/21/25 10:03 Medical Decision Making Patient is a pleasant 85-year-old gentleman past medical history of migraines, presenting today with chief complaint of wound evaluation. Patient was seen here 6 days ago for laceration that he [place] and struck his forehead. It is closed with sutures as well as with Steri-Strips. Patient is concerned that the scab that has formed over this area may be turning into skin and growing over the Steri-Strips so he feels that he should be removed. He reports that he has fallen since but again, feels that this is more associated with mechanical fall such as tripping over a hose. He denies any palpitations, loss of consciousness, headache. He has not struck his head again. He has not seen any other significant injuries. On exam, patient appears nontoxic. He is hemodynamically stable resting comfortably no acute distress. Wound appears to be healing well, 2 long Steri-Strips remain in place but he does have a large burden of clot overlying the wound being difficult to visualize all of his sutures that are in place. Patient was advised to come in tomorrow to have these removed, given the location, likely appropriate to be able to remove a day early. Ever, will need to soften the clot first so that we are able to visualize the wound underneath and be able to remove these as atraumatically as possible. Patient reports that he gets infections from hydrogen peroxide so sterile water was applied, will allow this to soften and then attempt removal. After cleaning area, steristrips were able to be removed per patient request and to allow for better visualization for suture removal and wound evaluation. Four simple interupted sutures were removed, patient tolerated well. Wound otherwise healing well. No evidence of infection. Reutrn precautions discussed. Encouraged f/u with PCP. All of his questions and concerns were addressed, he is in agreement with this plan. [facility] All Active Problems (Updated 02/21/25 @ 10:46 by SCOOTER Nelson) Multiple abrasions (Acute) Forehead laceration (Acute) Fall (Acute) Mantle cell lymphoma (Acute) Seroma due to trauma (Acute) Hematuria (Acute) Short of breath on exertion (Acute) Lipoma (Acute) Right shoulder pain (Acute) Obesity (BMI 30-39.9) (Acute) Anticoagulant long-term use (Acute) DVT (deep venous thrombosis) (Chronic) 06/2021, extensive, involving left leg, associated with multiple PE's Also persistent modest post DVT edema left [id number] x6 months Diabetes mellitus (Chronic 2021) Essential hypertension (Acute) Erectile disorder, acquired, generalized, moderate (Acute) POLST (Physician Orders for Life-Sustaining Treatment) (Acute) Osteoarthritis (Acute) Hearing loss (Acute) GERD (gastroesophageal reflux disease) (Chronic) Medical History Microscopic hematuria History of tobacco use Has not smoked for 35 to 40 years. Migraine aura without headache (08/12/16) Does not get them any more. (he says 22 years) Injury of hand (02/05/18) Surgical History History of lymph node excision (~09/2024) Status post tonsillectomy Tonsillectomy Family History Mother , age 70 Chronic obstructive lung disease Cancer Father , age 61 Colon cancer Sister , age 74 Diabetes Essential hypertension Stroke Brother , age 72 Diabetes Lung cancer Maternal Grandfather Essential hypertension Stroke Paternal Grandfather No problems noted. Maternal Grandmother Diabetes Cancer Paternal Grandmother No problems noted. Brother Diabetes Brother No problems noted. Son No problems noted. Son No problems noted. Son No problems noted. Daughter , age 45 Cancer Social History Smoking/Tobacco Use Status: Former Tobacco Use tobacco type: cigarettes and smokeless tobacco Quit Date: 06/15/80 Tobacco: How many years used: 35 Quit status: quit date established Second Hand Exposure: Yes Smoking risk assessment performed?: Yes Alcohol Intake: current Alcohol Intake frequency: holidays/special occasions only Alcohol type: hard liquor Drug use: Never Substance use type: does not use Counseling given: No Adopted: No Caregiver/Support person: No Household members: none Housing: house Number of Children: 3 number of grandchildren: 2 Communication Needs: None Education Level: high school Do you need help understanding health information?: Rarely current occupation: Retired Pets and animals: No Sexually active: Yes Do you think of yourself as: straight/heterosexual Current gender identity: male What is your relationship status?: How often do you talk on the phone with friends or family?: three or more times per week How often do you get together with friends or relatives?: three or more times per week How often do you attend mu-ism or oriental orthodox services?: 4 or more times per year Do you belong to any clubs or organized social groups?: no Panel score (0-1 are the most socially isolated patients): 2 What type of physical activity do you participate in: walking Duration: 30-45 minutes/day Frequency: 3-4 times per week Edith/Uatsdin: Buddhism Special edith needs: No Seatbelt use: always Helmet use: Yes Helmet use: sometimes Drive 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
== END 2025-02-21 10:51 | disposition home or self-care (01) ==
PROVIDERS: Emergency Provider Physician Assistant; PCP Nurse Practitioner Family
DX: S01.81XD Laceration without foreign body of other part of head, subsequent encounter (principal); W19.XXXD Unspecified fall, subsequent encounter
CPT/HCPCS: 99281; 99282

== ENCOUNTER 2025-02-21 09:59 | Outpatient (REF) | payer MEDICARE, SELFPAY ==
--- NOTE | 2025-02-21 09:45 | PAPNONF_PTH ---
PATIENT: Kayode Cervantes LOC: [facility] U#:[id number] AGE/SX: 85/M ROOM: RE02/21/[address]: Harpal Berg MD : [id number] BED: DIS: 02/21/2025 SPEC #: [id number] RECD: 02/21/25 13:01 STATUS: DARIAN MON #: [id number] ISAK: 02/21/25 09:[address]: Harpal Berg DEPT: [facility] Cytology RECD BY: Kayla Mancia ENTERED: 02/21/25 13:02 SP TYPE: DAGO CERVANTES DR: Vinod Renee DNP Tissues: 1 - BODY FLUID CYTO(SPUTUM/URINE)[facility] Procedures: BODY FLUID CYTO(URINE/SPUTUM) Comments: [id number] (TV = 30 ml, 30 ml CYTOLYT ADDED) (REFRIGERATED)
== END 2025-02-21 10:00 | disposition home or self-care (01) ==
LOC: LBN 09:59
PROVIDERS: PCP Nurse Practitioner Family; Visit Provider Urology
DX: R31.9 Hematuria, unspecified (principal)
CPT/HCPCS: 88104

== ENCOUNTER 2025-02-22 04:07 | Outpatient (RCR) | payer MEDICARE, SELFPAY ==
[2025-02-22] MEDS: Normal Saline Flush 10 ML SYR IVP (08:57)
[2025-02-22 09:03] LABS: Abs Immature Grans 0.05 10^3/uL (0.0-0.06); HCT 38.8 % (40.0-50.0); HGB 12.1 g/dL (13.5-17.5); Immature Grans % 0.7 %; MCH 26.4 pg (27.0-33.0); MCHC 31.2 % (32.0-36.0); MCV 85 fL (80-95); MPV 9.6 fL (8.0-11.0); Platelet Count 296 10^3/uL (130-400); RBC 4.58 10^6/uL (4.36-5.78); RDW 15.3 % (11.8-14.1); RDW-SD 47.1 fL; WBC 6.80 10^3/uL (4.4-10.8)
[2025-02-22 09:29] LABS: Iron 37 ug/dL (65-175); Total Iron Binding Capacity 420 ug/dL (250-450); Transferrin Sat 9 % (20-55)
[2025-02-22 09:30] LABS: ALT 20 U/L (16-63); AST 16 U/L (15-37); Albumin 3.4 g/dL (3.4-5.0); Alkaline Phosphatase 55 U/L (46-116); Anion Gap 6.6 mmol/L (3-11); BUN 18 mg/dL (7-18); Bilirubin, Total 0.7 mg/dL (0.2-1.0); CO2 29.4 mmol/L (21.0-32.0); Calcium 9.0 mg/dL (8.5-10.1); Chloride 104 mmol/L (98-107); Ferritin 14 ng/mL (26-388); Glucose 144 mg/dL (74-106); Potassium 4.1 mmol/L (3.5-5.1); Sodium 140 mmol/L (136-145); Total Protein 7.3 g/dL (6.4-8.2)
[2025-02-22 09:43] LABS: LDH 278 U/L (85-227)
== END 2025-03-14 23:59 | disposition home or self-care (01) ==
LOC: INF 04:07
PROVIDERS: PCP Nurse Practitioner Family; Visit Provider Internal Medicine Hematology & Oncology
DX: C83.18 Mantle cell lymphoma, lymph nodes of multiple sites (principal); Z45.2 Encounter for adjustment and management of vascular access device
CPT/HCPCS: 36591; 80053; 82728; 83540; 83550; 83615; 85025

== ENCOUNTER 2025-03-22 03:28 | Outpatient (RCR) | payer MEDICARE, SELFPAY ==
[2025-03-22 07:20] LABS: Abs Immature Grans 0.08 10^3/uL (0.0-0.06); HCT 38.4 % (40.0-50.0); HGB 12.1 g/dL (13.5-17.5); Immature Grans % 1.1 %; MCH 26.2 pg (27.0-33.0); MCHC 31.5 % (32.0-36.0); MCV 83 fL (80-95); MPV 9.6 fL (8.0-11.0); Platelet Count 268 10^3/uL (130-400); RBC 4.61 10^6/uL (4.36-5.78); RDW 15.9 % (11.8-14.1); RDW-SD 47.8 fL; WBC 7.37 10^3/uL (4.4-10.8)
[2025-03-22] MEDS: Normal Saline Flush 10 ML SYR IVP (07:21)
[2025-03-22 07:40] LABS: Iron 38 ug/dL (65-175); Total Iron Binding Capacity 389 ug/dL (250-450); Transferrin Sat 10 % (20-55)
[2025-03-22 07:48] LABS: ALT 14 U/L (16-63); AST 18 U/L (15-37); Albumin 3.3 g/dL (3.4-5.0); Alkaline Phosphatase 55 U/L (46-116); Anion Gap 8.9 mmol/L (3-11); BUN 15 mg/dL (7-18); Bilirubin, Total 0.6 mg/dL (0.2-1.0); CO2 29.1 mmol/L (21.0-32.0); Calcium 8.7 mg/dL (8.5-10.1); Chloride 102 mmol/L (98-107); Ferritin 17 ng/mL (26-388); Glucose 122 mg/dL (74-106); Potassium 4.3 mmol/L (3.5-5.1); Sodium 140 mmol/L (136-145); Total Protein 7.1 g/dL (6.4-8.2)
[2025-03-22 07:59] LABS: LDH 283 U/L (85-227)
== END 2025-04-14 23:59 | disposition home or self-care (01) ==
LOC: INF 03:28
PROVIDERS: PCP Nurse Practitioner Family; Visit Provider Internal Medicine Hematology & Oncology
DX: C83.18 Mantle cell lymphoma, lymph nodes of multiple sites (principal); Z45.2 Encounter for adjustment and management of vascular access device
CPT/HCPCS: 36591; 80053; 82728; 83540; 83550; 83615; 85025

== ENCOUNTER 2025-04-19 03:27 | Outpatient (RCR) | payer MEDICARE, SELFPAY ==
[2025-04-19] MEDS: Normal Saline Flush 10 ML SYR IVP (10:36)
[2025-04-19 11:07] LABS: Abs Immature Grans 0.10 10^3/uL (0.0-0.06); HCT 40.7 % (40.0-50.0); HGB 12.9 g/dL (13.5-17.5); Immature Grans % 1.6 %; MCH 26.9 pg (27.0-33.0); MCHC 31.7 % (32.0-36.0); MCV 85 fL (80-95); MPV 9.7 fL (8.0-11.0); Platelet Count 284 10^3/uL (130-400); RBC 4.79 10^6/uL (4.36-5.78); RDW 16.7 % (11.8-14.1); RDW-SD 52.3 fL; WBC 6.40 10^3/uL (4.4-10.8)
[2025-04-19 11:28] LABS: ALT 21 U/L (16-63); AST 17 U/L (15-37); Albumin 3.2 g/dL (3.4-5.0); Alkaline Phosphatase 63 U/L (46-116); Anion Gap 7.9 mmol/L (3-11); BUN 13 mg/dL (7-18); Bilirubin, Total 0.6 mg/dL (0.2-1.0); CO2 30.1 mmol/L (21.0-32.0); Calcium 8.7 mg/dL (8.5-10.1); Chloride 102 mmol/L (98-107); Estimated GFR 59.63 (mL/min/1.73m2); Glucose 219 mg/dL (74-106); LDH 265 U/L (85-227); Potassium 4.2 mmol/L (3.5-5.1); Sodium 140 mmol/L (136-145); Total Protein 7.3 g/dL (6.4-8.2)
[2025-04-19 11:40] LABS: Iron 63 ug/dL (65-175); Total Iron Binding Capacity 358 ug/dL (250-450); Transferrin Sat 18 % (20-55)
[2025-04-19 11:57] LABS: Ferritin 40 ng/mL (26-388)
== END 2025-05-14 23:59 | disposition home or self-care (01) ==
LOC: INF 03:27
PROVIDERS: PCP Nurse Practitioner Family; Visit Provider Internal Medicine Hematology & Oncology
DX: C83.18 Mantle cell lymphoma, lymph nodes of multiple sites (principal); Z45.2 Encounter for adjustment and management of vascular access device
CPT/HCPCS: 36591; 80053; 82728; 83540; 83550; 83615; 85025

== ENCOUNTER 2025-05-24 00:27 | Outpatient (RCR) | payer MEDICARE, SELFPAY ==
[2025-05-24] MEDS: Normal Saline Flush 10 ML SYR IVP (10:05)
[2025-05-24 10:41] LABS: Abs Immature Grans 0.35 10^3/uL (0.0-0.06); HCT 40.3 % (40.0-50.0); HGB 13.1 g/dL (13.5-17.5); Immature Grans % 5.0 %; MCH 28.4 pg (27.0-33.0); MCHC 32.5 % (32.0-36.0); MCV 87 fL (80-95); MPV 9.9 fL (8.0-11.0); Platelet Count 246 10^3/uL (130-400); RBC 4.61 10^6/uL (4.36-5.78); RDW 16.9 % (11.8-14.1); RDW-SD 55.0 fL; WBC 7.00 10^3/uL (4.4-10.8)
[2025-05-24 11:03] LABS: Iron 40 ug/dL (65-175); Total Iron Binding Capacity 368 ug/dL (250-425); Transferrin Sat 11 % (20-55)
[2025-05-24 11:04] LABS: Hemoglobin A1C 6.9 % (<5.7); LDH 282 U/L (120-246); Uric Acid 5.7 mg/dL (3.7-9.2)
[2025-05-24 11:05] LABS: ALT 17 U/L (10-49); AST 21 U/L (<34); Albumin 4.0 g/dL (3.2-5.0); Alkaline Phosphatase 66 U/L (46-116); Anion Gap 9 mmol/L (3-11); BUN 15 mg/dL (9-23); Bilirubin, Total 0.8 mg/dL (0.2-1.2); CO2 27.0 mmol/L (20.0-31.0); Calcium 9.0 mg/dL (8.3-10.6); Chloride 102 mmol/L (98-107); Glucose 256 mg/dL (74-106); Potassium 4.2 mmol/L (3.5-5.1); Sodium 138 mmol/L (136-145); Total Protein 7.3 g/dL (5.7-8.2)
[2025-05-24 11:06] LABS: Ferritin 34 ng/mL (11-307)
[2025-05-24 11:19] LABS: Cholesterol 129 mg/dL (<200); HDL Cholesterol 46 mg/dL (>40)
== END 2025-06-14 23:59 | disposition home or self-care (01) ==
LOC: INF 00:27
PROVIDERS: Nurse Practitioner Adult Health; PCP Nurse Practitioner Family; Visit Provider Internal Medicine Hematology & Oncology
DX: C83.18 Mantle cell lymphoma, lymph nodes of multiple sites (principal); N42.9 Disorder of prostate, unspecified; E11.9 Type 2 diabetes mellitus without complications; Z45.2 Encounter for adjustment and management of vascular access device
CPT/HCPCS: 36591; 80053; 80061; 84153; 82728; 83036; 83540; 83550; 83615; 84550; 85025